=== PATIENT | female | born 1970 | race Caucasian/White ===

== ENCOUNTER 2019-01-19 13:38 | Emergency (ER) | payer BC ==
[2019-01-19 13:43] VITALS: BP 153/84
[2019-01-19] MEDS ORDERED: KETOROLAC TROMETHAMINE 60 MG/2 ML SDV IM ONE (14:26)
[2019-01-19] MEDS ORDERED: DEXAMETHASONE SOD PHOS INJ 10 MG/1 ML VIAL IM ONE (14:26)
--- NOTE | 2019-01-19 14:33 | ER Document Report ---
HPI - HPI Time Seen by Provider: 01/19/19 14:05 Pain Level: 4 Notes: Patient is a 48-year-old female with h/o previous back surgery and chronic back pain who presents c/o ongoing rt lower back pain with 'nerve pain' moving to the right thigh x2 weeks with muscle spasming. Patient states that bending twisting of the trunk make his pain worse. She is eating and drinking without any difficulties. She is urinating normally and having normal bowel movements. She has not had any injections or procedures to her lower back. Denies any IV drug abuse. No other concerns or complaints. Pt requesting muscle relaxer. Denies any headache, fever, neck pain, changes in vision/speech/mentation/hearing, URI, sore throat, chest pain, palpitations, syncope, cough, shortness of breath, wheeze, dyspnea, abdominal pain, nausea/vomiting/diarrhea, urinary retention, dysuria, hematuria, loss of control of bowel or bladder, numbness/tingling, saddle anesthesia, muscle paralysis/weakness, or rash. - ROS Systems Reviewed and Negative: Yes All other systems reviewed and negative - REPRODUCTIVE Reproductive: DENIES: : Past Medical History - Social History Smoking Status: Current Every Day Smoker Family History: Reviewed & Not Pertinent Vertical Provider Document - CONSTITUTIONAL Agree With Documented VS: Yes Notes: PHYSICAL EXAMINATION: GENERAL: Well-appearing, well-nourished and in no acute distress. LUNGS: Breath sounds clear to auscultation bilaterally and equal. No wheezes rales or rhonchi. HEART: Regular rate and rhythm without murmurs, rubs, gallops. ABDOMEN: Soft, nontender, nondistended abdomen. No guarding, no rebound. No masses appreciated. Normal bowel sounds present. No CVA tenderness bilaterally. No pulsatile mass Musculoskeletal: LE's b/l: FROM to passive/active. Strength 5+/5. No deficits noted. No bony tenderness of extremities. Back: FROM to passive/active. Strength 5+/5. No vertebral point tenderness, stepoffs, or deformities. No other bony tenderness, erythema, swelling, or ecchymosis. SLR negative b/l. + mild tenderness to the Rt L-paraspinal mm. Mild spasming. + right SI jt tenderness. No foot drop Extremities: No cyanosis, clubbing, or edema b/l. Peripheral pulses 2+. Capillary refill less than 2 seconds. NEUROLOGICAL: Normal speech, normal gait. Normal sensory, motor exams. Reflexes 2+ b/l. PSYCH: Normal mood, normal affect. SKIN: Warm, Dry, normal turgor, no rashes or lesions noted. - INFECTION CONTROL TRAVEL OUTSIDE OF THE [place] IN LAST 30 DAYS: No Course - Re-evaluation Re-evalutation: 01/19/19 14:31 Patient is an afebrile, well-hydrated, 48-year-old female who presents to the ED with acute on chronic low back pain. Vitals are acceptable. PE is otherwise unremarkable for any focal neurological deficits. Patient was given Decadron, Toradol. She has no significant tachycardia, tachypnea, or hypoxia. She is nontoxic-appearing and is tolerating p.o. without difficulties. There are no signs of infection. No other red flag symptoms noted. No other labs or imaging warranted at this time based on H&P. Low suspicion for any meningitis, fracture, expanding/ruptured AAA, cauda equina syndrome, epidural mass lesion/abscess, herniated disc causing severe spinal stenosis, or other systemic infection at this time. Patient is aware that this condition can change from initial presentation and that she needs monitor symptoms closely for any acute changes. I will send her home with a prescription for robaxin (she takes naproxen at home). Conservative measures otherwise for symptoms. Recheck with your PCM in 3-5 days. Consider consult with orthopedic/physical therapy. Return to the ED with any worsening/concerning symptoms otherwise as reviewed discharge. Patient is in agreement. - Vital Signs Vital signs: Temp Pulse Resp BP Pulse Ox 97.9 F 81 18 153/84 H 95 01/19/19 13:42 01/19/19 13:42 01/19/19 13:42 01/19/19 13:42 01/19/19 13:42 Discharge - Discharge Clinical Impression: Acute exacerbation of chronic low back pain Condition: Stable Disposition: HOME, SELF-CARE Instructions: Low Back Pain ([facility]) Additional Instructions: Rest, Ice Tylenol/ibuprofen as needed Light stretches daily Strength exercises as able Moist heat and massage may help F/u with your PCP in 3-5 days for a recheck Consider consult(s) with Orthopedics/physical therapy for ongoing/worsening symptoms Return to the ED with any worsening symptoms and/or development of fever, headache, chest pain, palpitations, syncope, shortness of breath, trouble breathing, abdominal pain, n/v/d, blood in stool/urine, loss of control of bowel/bladder, urinary retention, muscle weakness/paralysis, saddle anesthesia, numbness/tingling, or other worsening symptoms that are concerning to you. Prescriptions: Methocarbamol [Robaxin] 500 mg PO TID PRN #12 tablet PRN Reason: Forms: Elevated Blood Pressure, Smoking Cessation Education Referrals: [facility] [Provider Group] - Follow up as needed
== END 2019-01-19 14:53 | disposition home or self-care (01) ==
LOC: ER 13:38
DX: G89.29 Other chronic pain (principal); M54.5 Low back pain; R25.2 Cramp and spasm; F17.200 Nicotine dependence, unspecified, uncomplicated
CPT/HCPCS: 99283; 96374; 96375; J1885; J1100

== ENCOUNTER 2019-08-02 14:22 | Inpatient (IN) | payer BC, MEDICAID ==
--- NOTE | 2019-08-02 14:57 | ER Document Report ---
ED Medical Screen (RME) - General Chief Complaint: Leg Swelling Stated Complaint: LEG SWELLING, ABDOMINAL PAIN Time Seen by Provider: 08/02/19 14:46 Mode of Arrival: Wheelchair Information source: Patient Notes: 29-year-old female patient presents emergency department chief complaint of shortness of breath, dyspnea and bilateral lower extremity edema. Patient reports symptoms ongoing x1 month, getting worse over the last couple of weeks. She states she saw her primary care provider who placed her on Lasix 20 mg twice daily. She states at that time she had an elevated BNP of 12,000 however no further work-up was initiated. She states that she does have a history of CHF. Denies any chest pain currently. She does her also report that she has a hard lump in 1 of her breasts that she is concerned about. I have greeted and performed a rapid initial assessment of this patient. A comprehensive ED assessment and evaluation of the patient, analysis of test results and completion of the medical decision making process will be conducted by additional ED providers. I have specifically instructed the patient or family members with the patient to immediately return to any nursing staff should anything change in the patient's condition or with their chief complaint. TRAVEL OUTSIDE OF THE [place] IN LAST 30 DAYS: No - Related Data Allergies/Adverse Reactions: aspirin Allergy (Verified 08/02/19 14:45) gabapentin [From Neurontin] Allergy (Verified 08/02/19 14:45) Sulfa (Sulfonamide Antibiotics) Allergy (Verified 08/02/19 14:45) adhesive tape Adverse Reaction (Verified 08/02/19 14:45) Past Medical History - Social History Frequency of alcohol use: Rare - Past Medical History Cardiac Medical History: Reports: Hx Congestive Heart Failure Renal/ Medical History: Denies: Hx Peritoneal Dialysis Past Surgical History: Reports: Hx Section, Hx Cholecystectomy, Hx Hysterectomy, Hx Orthopedic Surgery - back/ankle/knee, Hx Tonsillectomy Physical Exam - Vital signs Vitals: Temp Pulse Resp BP Pulse Ox 97.5 F 82 18 106/75 91 L 08/02/19 14:31 08/02/19 14:31 08/02/19 14:31 08/02/19 14:31 08/02/19 14:31 Course - Vital Signs Vital signs: Temp Pulse Resp BP Pulse Ox 97.5 F 82 18 106/75 91 L 08/02/19 14:31 08/02/19 14:31 08/02/19 14:31 08/02/19 14:31 08/02/19 14:31
--- NOTE | 2019-08-02 15:23 | RADIOLOGY REPORT (SQ) ---
EXAM DESCRIPTION: CHEST 2 VIEWS COMPLETED DATE/TIME: 08/02/2019 3:14 pm REASON FOR STUDY: eval for fluid overload COMPARISON: None. EXAM PARAMETERS: NUMBER OF VIEWS: two views TECHNIQUE: Digital Frontal and Lateral radiographic views of the chest acquired. RADIATION DOSE: NA LIMITATIONS: none FINDINGS: LUNGS AND PLEURA: There is bilateral perihilar infiltrate and interstitial airspace diseas e. No pneumothorax or definite effusion. MEDIASTINUM AND HILAR STRUCTURES: No masses or contour abnormalities. HEART AND VASCULAR STRUCTURES: Heart is enlarged with central vascular prominence. BONES: No acute findings. HARDWARE: None in the chest. OTHER: No other significant finding. IMPRESSION: Cardiomegaly and vascular congestion. TECHNICAL DOCUMENTATION: JOB ID: [id number] [employer] All Rights Reserved Reading location - IP/workstation name: [email or web address]
[2019-08-02 16:25] LABS: ABSOLUTE BASOPHILS # (AUTO) 0.1 10^3/uL (0.0-0.2); ABSOLUTE EOSINOPHILS # (AUTO) 0.2 10^3/uL (0.0-0.6); ABSOLUTE LYMPHOCYTES (AUTO) 1.4 10^3/uL (0.5-4.7); ABSOLUTE MONOCYTES (AUTO) 0.7 10^3/uL (0.1-1.4); ABSOLUTE NEUT (AUTO) 6.4 10^3/uL (1.7-8.2); BASOPHILS % (AUTO) 0.9 % (0-2); EOSINOPHILS % (AUTO) 2.2 % (0-6); HEMATOCRIT 51.4 % (36.0-47.0); HEMOGLOBIN 16.5 g/dL (12.0-15.5); LYMPHOCYTES % (AUTO) 16.2 % (13-45); MEAN CORPUSCULAR HEMOGLOBIN 31.7 pg (27.0-33.4); MEAN CORPUSCULAR HGB CONC 32.1 g/dL (32.0-36.0); MEAN CORPUSCULAR VOLUME 99 fl (80-97); MONOCYTES % (AUTO) 7.8 % (3-13); PLATELET COUNT 210 10^3/uL (150-450); RED BLOOD COUNT 5.21 10^6/uL (3.72-5.28); RED CELL DISTRIBUTION WIDTH 18.5 % (11.5-14.0); SEGMENTED NEUTROPHILS % (AUTO) 72.9 % (42-78); TOTAL CELLS COUNTED % (AUTO) 100 %; WHITE BLOOD COUNT 8.8 10^3/uL (4.0-10.5)
[2019-08-02 16:41] LABS: ALBUMIN 3.3 g/dL (3.5-5.0); ALKALINE PHOSPHATASE 72 U/L (38-126); ANION GAP 6 (5-19); ASPARTATE AMINO TRANSFERASE 22 U/L (14-36); BILIRUBIN,DIRECT 0.3 mg/dL (0.0-0.4); BILIRUBIN,TOTAL 0.6 mg/dL (0.2-1.3); BLOOD UREA NITROGEN 17 mg/dL (7-20); CALCIUM 8.4 mg/dL (8.4-10.2); CARBON DIOXIDE 37 mmol/L (22-30); CHLORIDE 93 mmol/L (98-107); GLUCOSE 147 mg/dL (75-110); POTASSIUM 4.5 mmol/L (3.6-5.0); TOTAL PROTEIN 6.4 g/dL (6.3-8.2)
[2019-08-02 16:52] LABS: TROPONIN I 0.02 ng/mL
--- NOTE | 2019-08-02 17:19 | EKG REPORT ---
SEVERITY:- ABNORMAL ECG - SINUS RHYTHM DAYNA, CONSIDER BIATRIAL ABNORMALITIES CONSIDER RIGHT VENTRICULAR HYPERTROPHY : Confirmed by: Mely Cuba MD 02-Aug-2019 17:19:17
[2019-08-02] MEDS ORDERED: FUROSEMIDE INJ/PF 40 MG/4 ML SDV IV ONE (18:52)
--- NOTE | 2019-08-02 19:00 | ER Document Report ---
ED General - General Chief Complaint: Leg Swelling Stated Complaint: LEG SWELLING, ABDOMINAL PAIN Time Seen by Provider: 08/02/19 14:46 Mode of Arrival: Wheelchair Information source: Patient, Relative TRAVEL OUTSIDE OF THE [place] IN LAST 30 DAYS: No - HPI Onset: Other - over the last month Onset/Duration: Gradual Quality of pain: No pain Severity: None Associated symptoms: Shortness of breath, Other - cough, leg swelling, weight gain Exacerbated by: Other - exertion, laying down Relieved by: Other - sleeping upright, not exerting herself Similar symptoms previously: Yes - with CHF in the past Recently seen / treated by doctor: No Notes: 49 year old female with a history a history of CHF (maintained on Lasix 20mg BID) and HTN here for several weeks of worsening leg swelling and shortness of breath. The patient says she has started back on Lasix in late June. Apparently she was told several years ago she has CHF but her doctor told her she didnt have to be on a diuretic so she had been taken off. The patient denies chest pain of any kind. The patient is unable to sleep laying flat. The patient still smokes. - Related Data Allergies/Adverse Reactions: aspirin Allergy (Verified 08/02/19 14:45) gabapentin [From Neurontin] Allergy (Verified 08/02/19 14:45) Sulfa (Sulfonamide Antibiotics) Allergy (Verified 08/02/19 14:45) adhesive tape Adverse Reaction (Verified 08/02/19 14:45) Past Medical History - General Information source: Patient - Social History Smoking Status: Current Every Day Smoker Frequency of alcohol use: Rare Drug Abuse: None Lives with: Family Family History: Reviewed & Not Pertinent Patient has suicidal ideation: No Patient has homicidal ideation: No - Past Medical History Cardiac Medical History: Reports: Hx Congestive Heart Failure, Hx Hypertension Renal/ Medical History: Denies: Hx Peritoneal Dialysis Past Surgical History: Reports: Hx Section, Hx Cholecystectomy, Hx Hysterectomy, Hx Orthopedic Surgery - back/ankle/knee, Hx Tonsillectomy Review of Systems - Review of Systems Constitutional: No symptoms reported EENT: No symptoms reported Cardiovascular: Orthopnea, Dyspnea, Edema Respiratory: Short of breath Gastrointestinal: No symptoms reported Genitourinary: No symptoms reported Female Genitourinary: No symptoms reported Musculoskeletal: Leg swelling, Ankle swelling Skin: No symptoms reported Hematologic/Lymphatic: No symptoms reported Neurological/Psychological: No symptoms reported Physical Exam - Vital signs Vitals: Temp Pulse Resp BP Pulse Ox 97.5 F 82 18 106/75 91 L 08/02/19 14:31 08/02/19 14:31 08/02/19 14:31 08/02/19 14:31 08/02/19 14:31 - Notes Notes: GENERAL: Well-appearing, well-nourished and in no acute distress. HEAD: Atraumatic, normocephalic. EYES: Pupils equal round and reactive to light, extraocular movements intact, sclera anicteric, conjunctiva are normal. ENT: TMs normal, nares patent, oropharynx clear without exudates. Moist mucous membranes. NECK: Normal range of motion, supple without lymphadenopathy or JVD. LUNGS: Mild wheezing bilaterally, rales or rhonchi. HEART: Regular rate and rhythm without murmurs, rubs or gallops. ABDOMEN: Soft, nontender, normoactive bowel sounds. No guarding, no rebound. No masses appreciated. EXTREMITIES: Normal range of motion. Bilateral lower extremity pitting edema. No clubbing or cyanosis. NEUROLOGICAL: Cranial nerves II through XII grossly intact. Normal speech, normal gait. PSYCH: Normal mood, normal affect. SKIN: Warm, Dry, normal turgor, no rashes or lesions noted. Course - Re-evaluation Re-evalutation: 08/02/19 19:10 The patient is in heart failure and she has an new oxygen requirement. Patient has no PCP or [facility] Testing Manager at the moment. Will give 40mg IV Lasix and admit. Patient is not having chest pain and her Trop is negative. Chest Xray shows cardiomegaly and pulmonary edema 08/02/19 20:15 - Vital Signs Vital signs: Temp Pulse Resp BP Pulse Ox 97.5 F 82 22 H 114/85 93 08/02/19 14:31 08/02/19 14:31 08/02/19 18:57 08/02/19 18:57 08/02/19 18:57 - Laboratory Result Diagrams: 08/02/19 15:43 08/02/19 15:43 Laboratory results interpreted by me: 08/02/19 08/02/19 08/02/19 15:43 15:43 15:43 Hgb 16.5 H Hct 51.4 H MCV 99 H RDW 18.5 H Sodium 136.4 L Chloride 93 L Carbon Dioxide 37 H Glucose 147 H NT-Pro-B Natriuret Pep 86251 H Albumin 3.3 L - Diagnostic Test Radiology reviewed: Image reviewed, Reports reviewed - EKG Interpretation by Me EKG shows normal: Sinus rhythm, Intervals, QRS Complexes Rate: Normal [place]/QRS: Right axis deviation Additional EKG results interpreted by me: 08/02/19 20:16 T wave inversions in V1-V5 Discharge - Discharge Clinical Impression: Hypoxemia Heart failure Qualifiers: Heart failure type: unspecified Heart failure chronicity: acute on chronic Qualified Code(s): I50.9 - Heart failure, unspecified Condition: Stable Disposition: ADMITTED INPATIENT Admitting Provider: Kerry (Hospitalist) Unit Admitted: Telemetry
[2019-08-02] MEDS ORDERED: MAG HYDROX/AL HYDROX/SIMETH SUSP 30 ML UDCUP PO PRN (21:54)
[2019-08-02] MEDS ORDERED: MAGNESIUM HYDROXIDE SUSP 30 ML UDCUP PO PRN (21:54)
[2019-08-02] MEDS ORDERED: PROMETHAZINE HCL INJ 25 MG/1 ML VIAL IV PRN (21:54)
[2019-08-02] MEDS ORDERED: NICOTINE 21 MG/24 HR PATCH.TD24 TD PRN (22:02)
[2019-08-02] MEDS ORDERED: GUAIFENESIN SYRP 200 MG/10 ML UDC PO PRN (22:02)
[2019-08-02] MEDS ORDERED: MORPHINE SULFATE 10 MG/ML INJ IV PRN (22:02)
[2019-08-02] MEDS ORDERED: MELATONIN 5 MG TABLET PO PRN (22:02)
[2019-08-02 22:55] LABS: CREATINE KINASE MB 2.87 ng/mL (<4.55); TROPONIN I 0.023 ng/mL
[2019-08-02] MEDS: HEPARIN SOD (PORCINE) 5,000 UNIT/ML 1 ML VIAL SUBCUT SCH (23:23)
[2019-08-02] MEDS: FAMOTIDINE 20 MG TABLET PO SCH (23:24)
--- NOTE | 2019-08-03 00:46 | PDOC H&P ---
History of Present Illness Admission Date/PCP: 08/02/19 19:43 No local PCP Patient complains of: Dyspnea History of Present Illness: ANGÉLICA DOUGLASS is a 49 year old female who presents to the emergency room with a 1 month history of dyspnea. She admits to gradually worsening dyspnea accompanying dyspnea on exertion and associated bilateral leg swelling and orthopnea all becoming progressively worse over the last 1 month. She was seen at the [facility] in late June and was treated for heart failure by increasing her Lasix 20 mg to twice a day without any improvement. She denies other associated or accompanying signs and symptoms she admits a prior similar but far less severe episode when she was diagnosed with heart failure several years ago. She has not identified any additional aggravating or ameliorating factors for her dyspnea. In the emergency room she was found to have an elevated BNP with acute pulmonary edema demonstrated radiographically and was noted to require oxygen to maintain an adequate O2 saturation. She was subsequently admitted to the hospital for further evaluation and treatment. Past Medical History Cardiac Medical History: Reports: Congestive Heart Failure, Hypertension Denies: Atrial Fibrillation, Coronary Artery Disease, Myocardial Infarction, Hyperlipidema Pulmonary Medical History: Denies: Asthma, Chronic Obstructive Pulmonary Disease (COPD) EENT Medical History: Denies: Cataracts, Ears - Hearing aids Neurological Medical History: Denies: Hemorrhagic CVA, Ischemic CVA, Seizures Endocrine Medical History: Reports: Obesity Denies: Diabetes Mellitus Type 1, Diabetes Mellitus Type 2, Hyperthyroidism, Hypothyroidism Renal/ Medical History: Reports: Other - Endometriosis Denies: Chronic Kidney Disease, Nephrolithiasis Malignancy Medical History: Reports: None GI Medical History: Denies: Cirrhosis, Crohn's Disease, Gastroesophageal Reflux Disease, Hepatitis, Peptic Ulcer Disease, Ulcerative Colitis Musculoskeltal Medical History: Denies: Arthritis, Gout Skin Medical History: Denies: Eczema, Psoriasis Psychiatric Medical History: Reports: Tobacco Dependency Denies: Alcohol Dependency, Substance Abuse Traumatic Medical History: Reports: None Hematology: Denies: Anemia, Bleeding Tendencies Infectious Medical History: Reports: None Past Surgical History Past Surgical History: Reports: Section, Cholecystectomy, Hysterectomy, Knee Replacement, Orthopedic Surgery - back X2, right knee and right ankle, Tonsillectomy, Other - Numerous laparoscopies for endometriosis Social History Information Source: Patient Lives with: Family Smoking Status: Current Every Day Smoker Cigarettes Packs Per Day: 0.5 Electronic Cigarette use?: No Frequency of Alcohol Use: None Hx Recreational Drug Use: No Drugs: None Hx Prescription Drug Abuse: No - Advance Directive Resuscitation Status: Full Code Surrogate healthcare decision maker:: Gladys Frank Family History Family History: CAD, Hypertension, Malignancy. denies: DM Parental Family History Reviewed: Yes Children Family History Reviewed: No Sibling(s) Family History Reviewed.: Yes Medication/Allergy Allergies/Adverse Reactions: aspirin Allergy (Verified 08/02/19 14:45) gabapentin [From Neurontin] Allergy (Verified 08/02/19 14:45) Sulfa (Sulfonamide Antibiotics) Allergy (Verified 08/02/19 14:45) adhesive tape Adverse Reaction (Verified 08/02/19 14:45) Review of Systems Constitutional: ABSENT: chills, fever(s) Eyes: ABSENT: visual disturbances, other - Eye pain Ears: ABSENT: hearing changes, other - Ear pain Nose, Mouth, and Throat: ABSENT: headache(s), mouth pain, sore throat Breasts: PRESENT: other - Swelling in left breast associated with increased swelling of legs Cardiovascular: PRESENT: as per HPI, dyspnea on exertion, edema, orthropnea. ABSENT: chest pain, palpitations Respiratory: PRESENT: as per HPI, dyspnea. ABSENT: cough Gastrointestinal: ABSENT: abdominal pain, constipation, diarrhea, nausea, vomiting Genitourinary: ABSENT: dysuria, hematuria Musculoskeletal: ABSENT: back pain, joint swelling, muscle weakness Integumentary: ABSENT: pruritus, rash Neurological: ABSENT: confusion, convulsions, focal weakness, memory loss, sync ope Psychiatric: ABSENT: anxiety, depression Endocrine: ABSENT: cold intolerance, heat intolerance Hematologic/Lymphatic: ABSENT: easy bleeding, easy bruising Allergic/Immunologic: ABSENT: seasonal rhinorrhea Physical Exam Vital Signs: Temp Pulse Resp BP Pulse Ox 97.5 F 82 22 H 114/85 93 08/02/19 14:31 08/02/19 14:31 08/02/19 18:57 08/02/19 18:57 08/02/19 18:57 Intake & Output 07/31/19 08/01/19 08/02/19 23:59 23:59 23:59 Weight 99.8 kg General appearance: PRESENT: no acute distress, cooperative, morbidly obese Head exam: PRESENT: atraumatic, normocephalic Eye exam: PRESENT: conjunctiva pink. ABSENT: conjunctival injection, scleral icterus Ear exam: PRESENT: normal external ear exam. ABSENT: bleeding, drainage Mouth exam: PRESENT: dry mucosa, neck supple Neck exam: PRESENT: JVD - Bilateral. ABSENT: thyromegaly, tracheal deviation Respiratory exam: PRESENT: decreased breath sounds - Breath sounds decreased at both bases, rales - Fine bilateral rales in the lower one half of lung padilla, symmetrical Cardiovascular exam: PRESENT: gallop - S4 gallop rhythm. ABSENT: clicks, RRR, r ubs Pulses: PRESENT: normal carotid pulses, normal radial pulses Vascular exam: PRESENT: normal capillary refill. ABSENT: pallor Breast: PRESENT: Other - Edema of left breast GI/Abdominal exam: PRESENT: normal bowel sounds, soft Rectal exam: PRESENT: deferred Extremities exam: PRESENT: pedal edema - Bilateral, other - 3+ pitting edema of the bilateral lower extremities to the mid thigh on the right and to the hip on the left Musculoskeletal exam: ABSENT: deformity, dislocation Neurological exam: PRESENT: alert, oriented to person, oriented to place, oriented to time, oriented to situation, CN II-XII grossly intact. ABSENT: motor sensory deficit Psychiatric exam: PRESENT: appropriate affect, normal mood Skin exam: PRESENT: dry, intact, warm. ABSENT: jaundice, rash, urticaria Results Laboratory Results: 08/02/19 15:43 08/02/19 15:43 08/02/19 08/02/19 15:43 15:43 WBC 8.8 RBC 5.21 Hgb 16.5 H Hct 51.4 H MCV 99 H MCH 31.7 MCHC 32.1 RDW 18.5 H Plt Count 210 Seg Neutrophils % 72.9 Sodium 136.4 L Potassium 4.5 Chloride 93 L Carbon Dioxide 37 H Anion Gap 6 BUN 17 Creatinine 0.73 Est GFR ( Amer) > 60 Glucose 147 H Calcium 8.4 Total Bilirubin 0.6 AST 22 Alkaline Phosphatase 72 Total Protein 6.4 Albumin 3.3 L 08/02/19 15:43 Troponin I 0.020 NT-Pro-B Natriuret Pep 25626 H Impressions: Chest X-Ray 08/02/19 14:55 IMPRESSION: Cardiomegaly and vascular congestion. Assessment and Plan - Diagnosis (1) Acute pulmonary edema with congestive heart failure Is this a current diagnosis for this admission?: Yes (2) Acute respiratory failure with hypoxia Is this a current diagnosis for this admission?: Yes (3) Acute on chronic congestive heart failure Qualifiers: Heart failure type: unspecified Qualified Code(s): I50.9 - Heart failure, unspecified Is this a current diagnosis for this admission?: Yes (4) Essential hypertension Is this a current diagnosis for this admission?: Yes (5) Morbid obesity with BMI of 40.0-44.9, adult Is this a current diagnosis for this admission?: Yes (6) Tobacco use disorder, continuous Is this a current diagnosis for this admission?: Yes - Plan Summary Summary: Patient is admitted to the medical floor on telemetry bed for routine supportive and symptomatic cares. She will be placed on the congestive heart failure protocol. A cardiology consultation with Dr. Queen will be obtained and an echocardiogram will be ordered. Patient will receive supplemental oxygen utilizing nasal cannula as required to maintain an adequate O2 saturation. Use of noninvasive airway pressure support devices will be entertained if required. Patient will receive morphine 2 mg IV every hour as needed severe dyspnea for treatment of her pulmonary edema. Routine laboratory evaluations will be obtained per the congestive heart failure protocol. Smoking cessation is advised and counseled briefly at the bedside. A nicotine replacement patch is available for the patient's use, if desired. - Time Time Spent with patient: 15-24 minutes Smoking Cessation Education: 3 to 10 minutes Medications reviewed and adjusted accordingly: Yes Anticipated discharge: Home with Homehealth - Inpatient Certification Based on my medical assessment, after consideration of the patient's comorbidities, presenting symptoms, or acuity I expect that the services needed warrant INPATIENT care.: Yes I certify that my determination is in accordance with my understanding of Medicare's requirements for reasonable and necessary INPATIENT services [42 CFR 412.3e].: Yes Medical Necessity: Failure to Improve With Outpatient Therapy, Significant Comorbidiites Make Outpatient Treatment Too Risky, Need Close Monitoring Due to Risk of Patient Decompensation, Need For Continuous Telemetry Monitoring, Risk of Complication if Not Cared For in Hospital
[2019-08-03] MEDS: FUROSEMIDE INJ/PF 40 MG/4 ML SDV IV SCH ×4 (00:56→21:15)
[2019-08-03] MEDS ORDERED: INFLUENZA QUAD (6MOS+) 2019-20 VAC 0.5 ML SYR IM ONE (01:45)
[2019-08-03 05:12] LABS: ABSOLUTE BASOPHILS # (AUTO) 0.1 10^3/uL (0.0-0.2); ABSOLUTE EOSINOPHILS # (AUTO) 0.2 10^3/uL (0.0-0.6); ABSOLUTE LYMPHOCYTES (AUTO) 1.8 10^3/uL (0.5-4.7); ABSOLUTE MONOCYTES (AUTO) 0.8 10^3/uL (0.1-1.4); BASOPHILS % (AUTO) 0.7 % (0-2); EOSINOPHILS % (AUTO) 2.6 % (0-6); HEMATOCRIT 54.2 % (36.0-47.0); HEMOGLOBIN 17.2 g/dL (12.0-15.5); LYMPHOCYTES % (AUTO) 20.1 % (13-45); MEAN CORPUSCULAR HEMOGLOBIN 31.5 pg (27.0-33.4); MEAN CORPUSCULAR HGB CONC 31.8 g/dL (32.0-36.0); MEAN CORPUSCULAR VOLUME 99 fl (80-97); MONOCYTES % (AUTO) 8.6 % (3-13); PLATELET COUNT 200 10^3/uL (150-450); RED BLOOD COUNT 5.47 10^6/uL (3.72-5.28); RED CELL DISTRIBUTION WIDTH 18.5 % (11.5-14.0); TOTAL CELLS COUNTED % (AUTO) 100 %; WHITE BLOOD COUNT 8.8 10^3/uL (4.0-10.5)
[2019-08-03 05:30] LABS: BLOOD UREA NITROGEN 18 mg/dL (7-20); CALCIUM 8.8 mg/dL (8.4-10.2); CHLORIDE 89 mmol/L (98-107); CHOLESTEROL 133.17 mg/dL (0-200); CREATINE KINASE 27 U/L (30-135); GLUCOSE 89 mg/dL (75-110); POTASSIUM 5.3 mmol/L (3.6-5.0); TRIGLYCERIDES 119 mg/dL (<150)
[2019-08-03 05:41] LABS: DIRECT LDL 107 mg/dL (<100)
[2019-08-03 05:42] LABS: CREATINE KINASE MB 2.6 ng/mL (<4.55); TROPONIN I 0.027 ng/mL
[2019-08-03 05:52] LABS: ANION GAP 6 (5-19)
[2019-08-03 05:56] LABS: CARBON DIOXIDE 47 mmol/L (22-30)
[2019-08-03] MEDS: HEPARIN SOD (PORCINE) 5,000 UNIT/ML 1 ML VIAL SUBCUT SCH ×3 (05:59→21:15)
[2019-08-03 06:01] LABS: THYROID STIMULATING HORMONE 2.71 uIU/mL (0.47-4.68)
[2019-08-03 06:24] LABS: FREE T3 2.8 pg/mL (2.77-5.27)
[2019-08-03] MEDS: POTASSIUM CHLORIDE 10 MEQ TABLET.ER PO SCH ×3 (11:22→16:46)
[2019-08-03] MEDS: LISINOPRIL 5 MG TABLET PO SCH (11:24)
[2019-08-03] MEDS: DOCUSATE SODIUM 100 MG CAPSULE PO SCH (11:25)
[2019-08-03] MEDS: FAMOTIDINE 20 MG TABLET PO SCH ×2 (11:25→21:16)
[2019-08-03] MEDS: METOPROLOL SUCCINATE 25 MG TAB.SR.24H PO SCH (11:25)
[2019-08-03] MEDS: CLOPIDOGREL BISULFATE 75 MG TABLET PO SCH (11:25)
[2019-08-03 12:04] LABS: CREATINE KINASE MB 2.04 ng/mL (<4.55); TROPONIN I 0.019 ng/mL
[2019-08-03 14:46] LABS: BLOOD UREA NITROGEN 16 mg/dL (7-20); CALCIUM 8.2 mg/dL (8.4-10.2); CHLORIDE 89 mmol/L (98-107); GLUCOSE 93 mg/dL (75-110); POTASSIUM 4.8 mmol/L (3.6-5.0)
[2019-08-03 14:58] LABS: ANION GAP 5 (5-19)
[2019-08-03 15:00] LABS: CARBON DIOXIDE 43 mmol/L (22-30)
[2019-08-03] MEDS ORDERED: CYCLOBENZAPRINE HCL 10 MG TABLET PO ONE (15:00)
[2019-08-03 16:35] LABS: ARTERIAL BLOOD BASE EXCESS 15.7 mmol/L; ARTERIAL BLOOD H2CO3 3.01 mmol/L (1.05-1.35); ARTERIAL BLOOD HCO3 48.2 mmol/L (20-24); ARTERIAL BLOOD O2 SATURATION 90.8 % (94-98); ARTERIAL BLOOD PO2 69.4 mmHg (80-100); ARTERIAL BLOOD TOTAL CO2 51.3 mmol/L (21-25)
--- NOTE | 2019-08-03 17:18 | PDOC PROGRESS REPORT ---
Subjective Progress Note for:: 08/03/19 Subjective:: The patient is a 49-year-old female with a past medical history of CHF, HTN, obesity, and tobacco dependence who was admitted 08/02/2019 for acute respiratory failure secondary to pulmonary edema and CHF exacerbation. The patient was seen on morning rounds. She was found resting in bed, comfortably, on BiPAP. She was sleeping soundly; woke briefly and made eye con tact. She nodded her head yes when I confirmed her name. She tells me that she is feeling well, but then quickly closed her eyes and went back to sleep. Per nursing, the patient was awake shortly later and fully conversational; A&O x4 per their assessment. ROS is otherwise limited. Nursing called to report panic bicarb (by chemistry) and PCO2 (by ABG) this afternoon. At the time of panic results, patient was awake, A&O x4, and eating her dinner without difficulty. No outward signs of hypercapnia. Patient was placed back on BiPAP; will plan for repeat ABG in 1 hour. Reason For Visit: ACUTE PULMONARY EDEMA,ACUTE ON CHRONIC SYSTOLIC Physical Exam Vital Signs: Temp Pulse Resp BP Pulse Ox 98.4 F 94 20 108/71 90 L 08/03/19 11:22 08/03/19 11:22 08/03/19 11:22 08/03/19 11:22 08/03/19 11:22 Intake & Output 08/02/19 08/03/19 08/04/19 06:59 06:59 06:59 Intake Total 260 1050 Output Total 1600 Balance -1340 1050 Weight 99.3 kg General appearance: PRESENT: no acute distress, obese, well-developed, well- nourished Head exam: PRESENT: atraumatic, normocephalic Eye exam: PRESENT: conjunctiva pink, EOMI, PERRLA. ABSENT: scleral icterus Ear exam: PRESENT: normal external ear exam Mouth exam: PRESENT: moist, tongue midline Neck exam: ABSENT: carotid bruit, JVD, lymphadenopathy, thyromegaly Respiratory exam: PRESENT: clear to auscultation carli, decreased breath sounds - bibasilar, symmetrical, unlabored, other - BiPAP. ABSENT: rales, rhonchi, wheezes Cardiovascular exam: PRESENT: RRR, +S1, +S2. ABSENT: diastolic murmur, rubs, systolic murmur Pulses: PRESENT: normal dorsalis pedis pul Vascular exam: PRESENT: normal capillary refill GI/Abdominal exam: PRESENT: normal bowel sounds, soft. ABSENT: distended, guarding, mass, organolmegaly, rebound, tenderness Rectal exam: PRESENT: deferred Gentrourinary exam: PRESENT: indwelling catheter Extremities exam: PRESENT: full ROM. ABSENT: calf tenderness, clubbing, pedal edema Neurological exam: PRESENT: CN II-XII grossly intact, other - Sleeping soundly. ABSENT: motor sensory deficit Psychiatric exam: PRESENT: appropriate affect, normal mood. ABSENT: homicidal ideation, suicidal ideation Skin exam: PRESENT: dry, intact, warm. ABSENT: cyanosis, rash Results Laboratory Results: 08/03/19 03:56 08/03/19 13:54 08/02/19 08/02/19 08/03/19 15:43 15:43 03:56 WBC 8.8 RBC 5.21 Hgb 16.5 H Hct 51.4 H MCV 99 H MCH 31.7 MCHC 32.1 RDW 18.5 H Plt Count 210 Seg Neutrophils % 72.9 Sodium 136.4 L 141.6 Potassium 4.5 5.3 H Chloride 93 L 89 L Carbon Dioxide 37 H 47 H* D Anion Gap 6 6 BUN 17 18 Creatinine 0.73 0.85 Est GFR ( Amer) > 60 > 60 Glucose 147 H 89 Calcium 8.4 8.8 Magnesium 2.2 Total Bilirubin 0.6 AST 22 Alkaline Phosphatase 72 Total Protein 6.4 Albumin 3.3 L Triglycerides 119 Cholesterol 133.17 LDL Cholesterol Direct 107 H VLDL Cholesterol 24.0 HDL Cholesterol 24 L TSH Free T3 pg/mL 08/03/19 08/03/19 08/03/19 03:56 03:56 13:54 WBC 8.8 RBC 5.47 H Hgb 17.2 H Hct 54.2 H MCV 99 H MCH 31.5 MCHC 31.8 L RDW 18.5 H Plt Count 200 Seg Neutrophils % 68.0 Sodium 136.6 L Potassium 4.8 Chloride 89 L Carbon Dioxide 43 H* Anion Gap 5 BUN 16 Creatinine 0.84 Est GFR ( Amer) > 60 Glucose 93 Calcium 8.2 L Magnesium Total Bilirubin AST Alkaline Phosphatase Total Protein Albumin Triglycerides Cholesterol LDL Cholesterol Direct VLDL Cholesterol HDL Cholesterol TSH 2.71 Free T3 pg/mL 2.80 08/02/19 08/02/19 08/02/19 15:43 22:10 22:10 Creatine Kinase 28 L CK-MB (CK-2) 2.87 Troponin I 0.020 0.023 NT-Pro-B Natriuret Pep 31936 H 08/03/19 08/03/19 08/03/19 03:56 03:56 10:40 Creatine Kinase 27 L 26 L CK-MB (CK-2) 2.60 Troponin I 0.027 NT-Pro-B Natriuret Pep 08/03/19 10:40 Creatine Kinase CK-MB (CK-2) 2.04 Troponin I 0.019 NT-Pro-B Natriuret Pep Impressions: Chest X-Ray 08/02/19 14:55 IMPRESSION: Cardiomegaly and vascular congestion. Assessment and Plan - Diagnosis (1) Acute on chronic congestive heart failure Qualifiers: Heart failure type: unspecified Qualified Code(s): I50.9 - Heart failure, unspecified Is this a current diagnosis for this admission?: Yes Plan: Echocardiogram is pending. Patient is admitted to the medical floor on continuous cardiac telemetry. Continue supplemental oxygen and BiPAP as needed to maintain saturations >90% Continues on Lisinopril 2.5 mg daily and Metoprolol XL 25 mg daily. Currently receiving IV furosemide. Cardiology is consulted; medications per their expertise. Cardiac diet. (2) Acute pulmonary edema with congestive heart failure Is this a current diagnosis for this admission?: Yes Plan: Secondary to #1 resulting in fluid volume overload. Evaluation and management as above. (3) Acute respiratory failure with hypoxia and hypercapnia Is this a current diagnosis for this admission?: Yes Plan: Secondary to #1 and #2. Additionally, I suspect that the patient has underlying COPD with a chronically elevated CO2. ABG on 2 L via nasal cannula revealed pH 7.30, PCO2 100, PO2 69, HCO3 48.2. At time of ABG, patient was alert and oriented, conversational, socially appropriate, and eating her dinner. Hgb 17. All indicate chronic CO2 retention. Patient is placed back on BiPAP; will repeat ABG in 1 hour to confirm improvement. Additionally have started scheduled and as needed nebulizer treatments. IV Solu-Medrol; perhaps patient's lung sounds are diminished due to COPD exacerbation with tight airways. Consider additional chest imaging if not significantly improved tomorrow. Consider pulmonology consultation. Patient will benefit from overnight sleep study as an outpatient. Careful attention to the patient's mentation/alertness. (4) HTN (hypertension) Is this a current diagnosis for this admission?: Yes Plan: Blood pressures are currently acceptable. Continues on Lisinopril, 2.5 mg daily and Metoprolol XL 25 mg daily. Currently receiving IV furosemide. Cardiology is consulted; medications per their expertise. Cardiac diet. (5) Morbid obesity with BMI of 40.0-44.9, adult Is this a current diagnosis for this admission?: Yes Plan: Dietary discretion and lifestyle modification are encouraged. Patient is placed on a cardiac diet sap basis and patient educator are consulted. (6) Tobacco use disorder, continuous Is this a current diagnosis for this admission?: Yes Plan: Smoking cessation to be encouraged. Nicotine replacement therapies are provided. - Time Time Spent with patient: 35 or more minutes Medications reviewed and adjusted accordingly: Yes Anticipated discharge: Home
[2019-08-03 18:44] LABS: ARTERIAL BLOOD BASE EXCESS 18.3 mmol/L; ARTERIAL BLOOD H2CO3 2.98 mmol/L (1.05-1.35); ARTERIAL BLOOD HCO3 50.8 mmol/L (20-24); ARTERIAL BLOOD O2 SATURATION 74.4 % (94-98); ARTERIAL BLOOD PH 7.33 (7.35-7.45); ARTERIAL BLOOD PO2 45.2 mmHg (80-100); ARTERIAL BLOOD TOTAL CO2 53.8 mmol/L (21-25)
[2019-08-03 18:46] LABS: ARTERIAL BLOOD FIO2 25%
--- NOTE | 2019-08-03 20:02 | RADIOLOGY REPORT (SQ) ---
EXAM DESCRIPTION: CHEST SINGLE VIEW COMPLETED DATE/TIME: 08/03/2019 7:51 pm REASON FOR STUDY: dyspnea COMPARISON: 08/02/2019 NUMBER OF VIEWS: One view. TECHNIQUE: Single frontal radiographic view of the chest acquired. LIMITATIONS: None. FINDINGS: LUNGS AND PLEURA: No opacities, masses or pneumothorax. No pleural effusion. MEDIASTINUM AND HILAR STRUCTURES: No masses or contour abnormality. HEART AND VASCULATURE: Cardiac enlargement. Vascular congestion. BONES: No acute findings. HARDWARE: None in the chest. OTHER: No other significant finding. IMPRESSION: CARDIAC ENLARGEMENT. VASCULAR CONGESTION. No improvement. TECHNICAL DOCUMENTATION: JOB ID: [id number] [employer]- All Rights Reserved Reading location - IP/workstation name: [email or web address]
[2019-08-03] MEDS: IPRATROPIUM/ALBUTEROL 0.5-2.5 MG/3 ML AMPUL NEB SCH (20:31)
[2019-08-03] MEDS: METHYLPREDNISOLONE INJ 40 MG/1 ML SDV IV SCH (21:15)
[2019-08-03] MEDS: ACETAMINOPHEN 325 MG TABLET PO PRN (21:16)
--- NOTE | 2019-08-03 21:45 | PDOC CONSULTATION ---
Consultation Consult Date: 08/03/19 Provider Consulted: TIFFANY MITTAL Consult reason:: Congestive heart failure History of Present Illness Admission Date/PCP: 08/02/19 19:43 Patient complains of: Dyspnea History of Present Illness: ANGÉLICA DOUGLASS is a 49 year old female who presented with acute onset respiratory distress. She is known to have nicotine dependence-cigarettes, obesity and hypertension. Her presentation was consistent with worsening respiratory distress probably due to fluid overload. She did have bronchospasm with active wheezing at the time of presentation as well. At the time of my exam patient is drowsy and quite sleepy. She is wearing noninvasive positive pressure ventilation. She is answering questions appropriately. Denies any chest pain. Admits to dyspnea and poor effort tolerance. Does not mention any prior cardiac complaints Continues to smoke cigarettes probably a half a pack per day. No familial illnesses are reported. Past Medical History Cardiac Medical History: Reports: Congestive Heart Failure, Hypertension Denies: Atrial Fibrillation, Coronary Artery Disease, Myocardial Infarction, Hyperlipidema Pulmonary Medical History: Denies: Asthma, Chronic Obstructive Pulmonary Disease (COPD) EENT Medical History: Denies: Cataracts, Ears - Hearing aids Neurological Medical History: Denies: Hemorrhagic CVA, Ischemic CVA, Seizures Endocrine Medical History: Reports: Obesity Denies: Diabetes Mellitus Type 1, Diabetes Mellitus Type 2, Hyperthyroidism, Hypothyroidism Renal/ Medical History: Reports: Other - Endometriosis Denies: Chronic Kidney Disease, Nephrolithiasis Malignancy Medical History: Reports: None GI Medical History: Denies: Cirrhosis, Crohn's Disease, Gastroesophageal Reflux Disease, Hepatitis, Peptic Ulcer Disease, Ulcerative Colitis Musculoskeltal Medical History: Denies: Arthritis, Gout Skin Medical History: Denies: Eczema, Psoriasis Psychiatric Medical History: Reports: Tobacco Dependency Denies: Alcohol Dependency, Substance Abuse Traumatic Medical History: Reports: None Hematology: Denies: Anemia, Bleeding Tendencies Infectious Medical History: Reports: None Past Surgical History Past Surgical History: Reports: Section, Cholecystectomy, Hysterectomy, Knee Replacement, Orthopedic Surgery - back X2, right knee and right ankle, Tonsillectomy, Other - Numerous laparoscopies for endometriosis Social History Lives with: Family Smoking Status: Current Every Day Smoker Cigarettes Packs Per Day: 0.5 Electronic Cigarette use?: No Frequency of Alcohol Use: None Hx Recreational Drug Use: No Drugs: None Hx Prescription Drug Abuse: No - Advance Directive Resuscitation Status: Full Code Family History Family History: CAD, Hypertension, Malignancy. denies: DM Parental Family History Reviewed: No - No familial illnesses reported Children Family History Reviewed: NA Sibling(s) Family History Reviewed.: NA Medication/Allergy Home Medications: Furosemide [Lasix 20 mg Tablet] 20 mg PO BID 08/03/19 Metoprolol Succinate [Toprol Xl 25 mg Tab.sr] 25 mg PO DAILY 08/03/19 Allergies/Adverse Reactions: aspirin Allergy (Verified 08/02/19 14:45) gabapentin [From Neurontin] Allergy (Verified 08/02/19 14:45) Sulfa (Sulfonamide Antibiotics) Allergy (Verified 08/02/19 14:45) adhesive tape Adverse Reaction (Verified 08/02/19 14:45) Review of Systems Constitutional: PRESENT: as per HPI Cardiovascular: PRESENT: dyspnea on exertion Respiratory: PRESENT: cough, dyspnea Neurological: PRESENT: as per HPI Physical Exam Vital Signs: Temp Pulse Resp BP Pulse Ox 97.9 F 83 20 122/72 89 L 08/03/19 20:33 08/03/19 20:35 08/03/19 20:33 08/03/19 20:35 08/03/19 20:35 Intake & Output 08/02/19 08/03/19 08/04/19 06:59 06:59 06:59 Intake Total 260 1170 Output Total 1600 Balance -1340 1170 Weight 99.3 kg General appearance: PRESENT: morbidly obese Head exam: PRESENT: atraumatic, normocephalic Eye exam: PRESENT: EOMI Mouth exam: PRESENT: moist Neck exam: PRESENT: JVD Respiratory exam: PRESENT: accessory muscle use, crackles, symmetrical, ta chypnea Cardiovascular exam: PRESENT: RRR, +S1, +S2 Pulses: PRESENT: normal radial pulses Rectal exam: PRESENT: deferred Neurological exam: PRESENT: alert, awake, oriented to person, oriented to place, oriented to time Psychiatric exam: PRESENT: appropriate affect Skin exam: PRESENT: dry, intact Results Laboratory Results: 08/03/19 03:56 08/03/19 13:54 08/03/19 08/03/19 08/03/19 03:56 03:56 03:56 WBC 8.8 RBC 5.47 H Hgb 17.2 H Hct 54.2 H MCV 99 H MCH 31.5 MCHC 31.8 L RDW 18.5 H Plt Count 200 Seg Neutrophils % 68.0 Carbonic Acid HCO3/H2CO3 Ratio ABG pH ABG pCO2 ABG pO2 ABG HCO3 ABG O2 Saturation ABG Base Excess FiO2 Sodium 141.6 Potassium 5.3 H Chloride 89 L Carbon Dioxide 47 H* D Anion Gap 6 BUN 18 Creatinine 0.85 Est GFR ( Amer) > 60 Glucose 89 Calcium 8.8 Magnesium 2.2 Triglycerides 119 Cholesterol 133.17 LDL Cholesterol Direct 107 H VLDL Cholesterol 24.0 HDL Cholesterol 24 L TSH 2.71 Free T3 pg/mL 2.80 08/03/19 08/03/19 08/03/19 13:54 16:17 18:20 WBC RBC Hgb Hct MCV MCH MCHC RDW Plt Count Seg Neutrophils % Carbonic Acid 3.01 H 2.98 H HCO3/H2CO3 Ratio 16:1 17:1 ABG pH 7.30 L 7.33 L ABG pCO2 100.0 H* 99.0 H* ABG pO2 69.4 L 45.2 L ABG HCO3 48.2 H 50.8 H ABG O2 Saturation 90.8 L 74.4 L ABG Base Excess 15.7 18.3 FiO2 2l 25% Sodium 136.6 L Potassium 4.8 Chloride 89 L Carbon Dioxide 43 H* Anion Gap 5 BUN 16 Creatinine 0.84 Est GFR ( Amer) > 60 Glucose 93 Calcium 8.2 L Magnesium Triglycerides Cholesterol LDL Cholesterol Direct VLDL Cholesterol HDL Cholesterol TSH Free T3 pg/mL 08/02/19 08/02/19 08/02/19 15:43 22:10 22:10 Creatine Kinase 28 L CK-MB (CK-2) 2.87 Troponin I 0.020 0.023 NT-Pro-B Natriuret Pep [id number] H 08/03/19 08/03/19 08/03/19 03:56 03:56 10:40 Creatine Kinase 27 L 26 L CK-MB (CK-2) 2.60 Troponin I 0.027 NT-Pro-B Natriuret Pep 08/03/19 10:40 Creatine Kinase CK-MB (CK-2) 2.04 Troponin I 0.019 NT-Pro-B Natriuret Pep EKG Comments: EKG reviewed independently by me. Sinus rhythm, left atrial abnormality, right ventricular hypertrophy Impressions: Chest X-Ray 08/03/19 00:00 IMPRESSION: CARDIAC ENLARGEMENT. VASCULAR CONGESTION. No improvement. Status: Image reviewed by me - Cardiomegaly and pulmonary vascular congestion Assessment & Plan - Diagnosis (1) Acute pulmonary edema with congestive heart failure Is this a current diagnosis for this admission?: Yes Plan: Acute decompensated congestive heart failure No prior history of similar illness. Chest x-ray with cardiomegaly and pulmonary vascular congestion EKG with right ventricular hypertrophy We will obtain transthoracic echocardiogram Agree with intravenous diuresis Agree with beta-paty as well as DEMETRIS inhibitor Continue to monitor fluid status carefully (2) Essential hypertension Is this a current diagnosis for this admission?: Yes Plan: We will watch blood pressures as we continue to diurese Continue lisinopril Continue metoprolol (3) Tobacco use disorder, continuous Is this a current diagnosis for this admission?: Yes Plan: Patient needs tobacco cessation counseling. He is also wheezing may be a component of bronchospasm exists which is complicating the picture
[2019-08-04] MEDS: IPRATROPIUM/ALBUTEROL 0.5-2.5 MG/3 ML AMPUL NEB SCH ×4 (02:46→20:23)
[2019-08-04 05:04] LABS: HEMOGLOBIN 15.6 g/dL (12.0-15.5); MEAN CORPUSCULAR HEMOGLOBIN 31.1 pg (27.0-33.4); MEAN CORPUSCULAR HGB CONC 31.9 g/dL (32.0-36.0); MEAN CORPUSCULAR VOLUME 98 fl (80-97); PLATELET COUNT 172 10^3/uL (150-450); RED BLOOD COUNT 5.03 10^6/uL (3.72-5.28); RED CELL DISTRIBUTION WIDTH 18.1 % (11.5-14.0); WHITE BLOOD COUNT 8.7 10^3/uL (4.0-10.5)
[2019-08-04 05:22] LABS: BLOOD UREA NITROGEN 21 mg/dL (7-20); CALCIUM 8.5 mg/dL (8.4-10.2); CHLORIDE 87 mmol/L (98-107); GLUCOSE 201 mg/dL (75-110); POTASSIUM 4.7 mmol/L (3.6-5.0)
[2019-08-04] MEDS: FUROSEMIDE INJ/PF 40 MG/4 ML SDV IV SCH ×3 (05:24→21:53)
[2019-08-04] MEDS: METHYLPREDNISOLONE INJ 40 MG/1 ML SDV IV SCH ×3 (05:24→21:53)
[2019-08-04] MEDS: HEPARIN SOD (PORCINE) 5,000 UNIT/ML 1 ML VIAL SUBCUT SCH ×3 (05:25→21:53)
[2019-08-04 05:29] LABS: ANION GAP 8 (5-19)
[2019-08-04 05:30] LABS: CARBON DIOXIDE 42 mmol/L (22-30)
[2019-08-04 06:49] LABS: ARTERIAL BLOOD BASE EXCESS 16.4 mmol/L; ARTERIAL BLOOD FIO2 50%; ARTERIAL BLOOD H2CO3 2.98 mmol/L (1.05-1.35); ARTERIAL BLOOD HCO3 48.8 mmol/L (20-24); ARTERIAL BLOOD O2 SATURATION 88.1 % (94-98); ARTERIAL BLOOD PH 7.31 (7.35-7.45); ARTERIAL BLOOD PO2 62.6 mmHg (80-100); ARTERIAL BLOOD TOTAL CO2 51.9 mmol/L (21-25)
--- NOTE | 2019-08-04 09:11 | XCELERA REPORT ---
[address] [address] Transthoracic Echocardiogram Report Name: ANGÉLICA DOUGLASS Age: 49 yrs Gender: Female : 1970 Patient Status: Inpatient Patient Location: [address] [place], [place] [address] Study Date: 08/03/2019 03:31 PM History: CHF Height: 60 in Weight: 218 lb BSA: 1.9 m2 Procedure: A complete two-dimensional transthoracic echocardiogram was performed (2D, M-mode, spectral and color flow Doppler). The study was technically difficult with many images being suboptimal in quality. Reason For Study: CHF, Pulm edema Previous Evaluation: No previous studies were available. History: CHF. Shortness of breath. Ordering Physician: ZAFAR FAROOQ Performed By: Nuvia Araujo Interpretation Summary The study was technically difficult with many images being suboptimal in quality. Left ventricular systolic function is low normal. The Ejection Fraction estimate is 50-55% The right ventricle is moderate to severely dilated. The right ventricular systolic function is moderately reduced. There is a mild amount of mitral regurgitation There is a mild amount of tricuspid regurgitation There is moderate pulmonary hypertension by echo Minimal pericardial effusion. MMode/2D Measurements & Calculations RVDd: 2.6 cm LVIDd: 4.6 cm FS: 27.9 % LA dimension: 4.3 cm IVSd: 1.1 cm LVIDs: 3.3 cm EDV(Teich): 98.0 ml LVPWd: 1.1 cm ESV(Teich): 44.9 ml EF(Teich): 54.1 % Doppler Measurements & Calculations MV E max lissa: MV P1/2t max lissa: Ao V2 max: LV V1 max P.8 cm/sec 100.8 cm/sec 119.4 cm/sec 5.7 mmHg MV A max lissa: MV P1/2t: 49.4 msec Ao max P.7 mmHgLV V1 max: 75.5 cm/sec MVA(P1/2t): 4.5 cm2 119.5 cm/sec MV E/A: 1.2 MV dec slope: 597.6 cm/sec2 MV dec time: 0.27 sec PA V2 max: TR max lissa: MV P1/2t-pr_phl: 74.5 cm/sec 322.1 cm/sec 49.4 msec PA max PG: TR max P.5 mmHg 2.2 mmHg Left Ventricle The left ventricle is grossly normal size. Left ventricular systolic function is low normal. The Ejection Fraction estimate is 50-55%. Doppler measurements suggest pseudonormalized left ventricular relaxation, which is associated with grade II/IV or mild to moderate diastolic dysfunction. Regional wall motion abnormalities cannot be excluded due to limited visualization. Right Ventricle The right ventricle is moderate to severely dilated. The right ventricular systolic function is moderately reduced. Atria The right atrium is mild to moderately dilated. The left atrium is mildly dilated. Mitral Valve The mitral valve is grossly normal. There is a mild amount of mitral regurgitation. Aortic Valve The aortic valve is not well visualized secondary to technical limitations. The aortic valve opens well. There is no aortic valve stenosis. No aortic regurgitation is present. Tricuspid Valve The tricuspid valve is normal in structure and function. There is no tricuspid stenosis. There is a mild amount of tricuspid regurgitation. Right ventricular systolic pressure is estimated to be elevated at 50-60mmHg. There is moderate pulmonary hypertension by echo. Pulmonic Valve The pulmonic valve is not well seen, but is grossly normal. There is a trace amount of pulmonic regurgitation. Great Vessels The aortic root is not well visualized but is probably normal size. The inferior vena cava appeared dilated and decreased < 50% with respiration (RAP 15-20 mmHg). Effusions Minimal pericardial effusion. : ZAFAR FAROOQ Anil
[2019-08-04] MEDS: DOCUSATE SODIUM 100 MG CAPSULE PO SCH (10:53)
[2019-08-04] MEDS: FAMOTIDINE 20 MG TABLET PO SCH ×2 (10:53→21:53)
[2019-08-04] MEDS: POTASSIUM CHLORIDE 10 MEQ TABLET.ER PO SCH ×3 (10:53→17:06)
[2019-08-04] MEDS: METOPROLOL SUCCINATE 25 MG TAB.SR.24H PO SCH (10:55)
[2019-08-04] MEDS: CLOPIDOGREL BISULFATE 75 MG TABLET PO SCH (10:55)
[2019-08-04] MEDS: LISINOPRIL 5 MG TABLET PO SCH (10:55)
--- NOTE | 2019-08-04 14:57 | PDOC PROGRESS REPORT ---
Subjective Progress Note for:: 08/04/19 Subjective:: The patient is a 49-year-old female with a past medical history of CHF, HTN, obesity, and tobacco dependence who was admitted 08/02/2019 for acute respiratory failure secondary to pulmonary edema and CHF exacerbation. The patient was seen on morning rounds. She was found resting in bed, comfortably, on supplemental oxygen via nasal cannula. She is awake and orient ed x4. She reports compliance with BiPAP overnight (however, nursing notes indicate otherwise). Patient reports that her breathing is somewhat improved; does continue to feel short of breath with mild exertion. She denies cough. She denies previous diagnosis of COPD. She does admit to smoking since the age of 13; most of her life smoking 2 to 3 packs daily (estimated 80 pack years). She denies ever being prescribed CPAP/BiPAP or home O2. Overall she reports that she is feeling better and has no new questions or concerns. She denies fever, chills, chest pain, palpitations, orthopnea, cough, abdominal pain, nausea, vomiting, diarrhea. Nursing notes intermittent noncompliance with oxygen/BiPAP and fluid restriction; otherwise no other concerns. Reason For Visit: ACUTE PULMONARY EDEMA,ACUTE ON CHRONIC SYSTOLIC Physical Exam Vital Signs: Temp Pulse Resp BP Pulse Ox 97.8 F 85 14 131/78 H 92 08/04/19 11:31 08/04/19 14:00 08/04/19 13:46 08/04/19 11:31 08/04/19 13:46 Intake & Output 08/03/19 08/04/19 08/05/19 06:59 06:59 06:59 Intake Total 260 1430 480 Output Total 1600 Balance -1340 1430 480 Weight 99.3 kg 99.5 kg General appearance: PRESENT: no acute distress, obese, well-developed, well- nourished Head exam: PRESENT: atraumatic, normocephalic Eye exam: PRESENT: conjunctiva pink, EOMI, PERRLA. ABSENT: scleral icterus Ear exam: PRESENT: normal external ear exam Mouth exam: PRESENT: moist, tongue midline Teeth exam: PRESENT: poor dentation Neck exam: ABSENT: carotid bruit, JVD, lymphadenopathy, thyromegaly Respiratory exam: PRESENT: prolonged expiratory phas, rhonchi, symmetrical, unlabored, other - Supplemental oxygen by nasal cannula. ABSENT: rales, wheezes Cardiovascular exam: PRESENT: RRR, +S1, +S2. ABSENT: diastolic murmur, rubs, systolic murmur Pulses: PRESENT: normal dorsalis pedis pul Vascular exam: PRESENT: normal capillary refill GI/Abdominal exam: PRESENT: normal bowel sounds, soft. ABSENT: distended, guarding, mass, organolmegaly, rebound, tenderness Rectal exam: PRESENT: deferred Extremities exam: PRESENT: full ROM, +2 edema - BLE. ABSENT: calf tenderness, clubbing, pedal edema Neurological exam: PRESENT: alert, awake, oriented to person, oriented to place, oriented to time, oriented to situation, CN II-XII grossly intact. ABSENT: m otor sensory deficit Psychiatric exam: PRESENT: appropriate affect, normal mood. ABSENT: homicidal ideation, suicidal ideation Skin exam: PRESENT: dry, intact, warm. ABSENT: cyanosis, rash Results Laboratory Results: 08/04/19 04:39 08/04/19 04:39 08/03/19 08/03/19 08/03/19 13:54 16:17 18:20 WBC RBC Hgb Hct MCV MCH MCHC RDW Plt Count Carbonic Acid 3.01 H 2.98 H HCO3/H2CO3 Ratio 16:1 17:1 ABG pH 7.30 L 7.33 L ABG pCO2 100.0 H* 99.0 H* ABG pO2 69.4 L 45.2 L ABG HCO3 48.2 H 50.8 H ABG O2 Saturation 90.8 L 74.4 L ABG Base Excess 15.7 18.3 FiO2 2l 25% Sodium 136.6 L Potassium 4.8 Chloride 89 L Carbon Dioxide 43 H* Anion Gap 5 BUN 16 Creatinine 0.84 Est GFR ( Amer) > 60 Glucose 93 Calcium 8.2 L 08/04/19 08/04/19 08/04/19 04:39 04:39 06:35 WBC 8.7 RBC 5.03 Hgb 15.6 H Hct 49.0 H MCV 98 H MCH 31.1 MCHC 31.9 L RDW 18.1 H Plt Count 172 Carbonic Acid 2.98 H HCO3/H2CO3 Ratio 16:1 ABG pH 7.31 L ABG pCO2 99.0 H* ABG pO2 62.6 L ABG HCO3 48.8 H ABG O2 Saturation 88.1 L ABG Base Excess 16.4 FiO2 50% Sodium 137.3 Potassium 4.7 Chloride 87 L Carbon Dioxide 42 H* Anion Gap 8 BUN 21 H Creatinine 0.79 Est GFR ( Amer) > 60 Glucose 201 H Calcium 8.5 08/02/19 08/02/19 08/02/19 15:43 22:10 22:10 Creatine Kinase 28 L CK-MB (CK-2) 2.87 Troponin I 0.020 0.023 NT-Pro-B Natriuret Pep [id number] H 08/03/19 08/03/19 08/03/19 03:56 03:56 10:40 Creatine Kinase 27 L 26 L CK-MB (CK-2) 2.60 Troponin I 0.027 NT-Pro-B Natriuret Pep 08/03/19 10:40 Creatine Kinase CK-MB (CK-2) 2.04 Troponin I 0.019 NT-Pro-B Natriuret Pep Impressions: Chest X-Ray 08/03/19 00:00 IMPRESSION: CARDIAC ENLARGEMENT. VASCULAR CONGESTION. No improvement. Assessment and Plan - Diagnosis (1) Acute on chronic congestive heart failure Qualifiers: Heart failure type: unspecified Qualified Code(s): I50.9 - Heart failure, unspecified Is this a current diagnosis for this admission?: Yes Plan: Echocardiogram reveals LVEF 50 to 55%. Moderate pulmonary hypertension Patient is admitted to the medical floor on continuous cardiac telemetry. Continue supplemental oxygen and BiPAP as needed to maintain saturations >90% Continues on Lisinopril 2.5 mg daily and Metoprolol XL 25 mg daily. Currently receiving IV furosemide. Cardiology is consulted; medications per their expertise. Cardiac diet. Fluid restricted to 1.5 L daily. (2) Acute pulmonary edema with congestive heart failure Is this a current diagnosis for this admission?: Yes Plan: Secondary to #1 resulting in fluid volume overload. Evaluation and management as above. (3) COPD (chronic obstructive pulmonary disease) Is this a current diagnosis for this admission?: Yes Plan: Patient denies prior history. Highly suspicious given the patient's laboratory findings (partially compensated PCO2 of 100 with normal mentation) Scheduled and as needed nebulizer treatments. IV Solu-Medrol. Pulmonology consultation. Remaining management as below (4) Acute respiratory failure with hypoxia and hypercapnia Is this a current diagnosis for this admission?: Yes Plan: Secondary to #1 - 3 Additionally, I suspect that the patient has underlying COPD with a chronically elevated CO2. ABG on 2 L via nasal cannula revealed pH 7.30, PCO2 100, PO2 69, HCO3 48.2. At time of ABG, patient was alert and oriented, conversational, socially appropriate, and eating her dinner. Hgb 17. All indicate chronic CO2 retention. Continue supplemental oxygen as needed to maintain saturations greater than 89%. Encourage BiPAP use. Continue scheduled and as needed nebulizer treatments. IV Solu-Medrol; perhaps patient's lung sounds are diminished due to COPD exacerbation with tight airways. We will obtain pulmonology consultation. Patient will benefit from overnight sleep study as an outpatient. Careful attention to the patient's mentation/alertness. (5) HTN (hypertension) Is this a current diagnosis for this admission?: Yes Plan: Blood pressures are currently acceptable. Continues on Lisinopril, 2.5 mg daily and Metoprolol XL 25 mg daily. Currently receiving IV furosemide. Cardiology is consulted; medications per their expertise. Cardiac diet. (6) Morbid obesity with BMI of 40.0-44.9, adult Is this a current diagnosis for this admission?: Yes Plan: Dietary discretion and lifestyle modification are encouraged. Patient is placed on a cardiac diet copy operator and patient educator are consulted. (7) Tobacco use disorder, continuous Is this a current diagnosis for this admission?: Yes Plan: Smoking cessation to be encouraged. Nicotine replacement therapies are provided. - Time Time Spent with patient: 35 or more minutes Medications reviewed and adjusted accordingly: Yes Anticipated discharge: Home Within: within 72 hours
--- NOTE | 2019-08-04 16:30 | PDOC PROGRESS REPORT ---
Subjective Progress Note for:: 08/04/19 Subjective:: Patient seen and examined. Quite somnolent. Continues on noninvasive positive pressure ventilation. Does not complain of dyspnea. Reason For Visit: ACUTE PULMONARY EDEMA,ACUTE ON CHRONIC SYSTOLIC Physical Exam Vital Signs: Temp Pulse Resp BP Pulse Ox 97.4 F 80 18 107/64 95 08/04/19 14:47 08/04/19 14:47 08/04/19 14:47 08/04/19 14:47 08/04/19 14:47 Intake & Output 08/03/19 08/04/19 08/05/19 06:59 06:59 06:59 Intake Total 260 1430 480 Output Total 1600 Balance -1340 1430 480 Weight 99.3 kg 99.5 kg General appearance: PRESENT: no acute distress, morbidly obese Head exam: PRESENT: atraumatic, normocephalic Respiratory exam: PRESENT: crackles, decreased breath sounds, prolonged expiratory phas, symmetrical Cardiovascular exam: PRESENT: RRR, +S1, +S2 Pulses: PRESENT: normal radial pulses GI/Abdominal exam: PRESENT: soft Rectal exam: PRESENT: deferred Neurological exam: PRESENT: alert, awake, oriented to person, oriented to place Skin exam: PRESENT: dry, intact Results Laboratory Results: 08/04/19 04:39 08/04/19 04:39 08/03/19 08/03/19 08/04/19 16:17 18:20 04:39 WBC 8.7 RBC 5.03 Hgb 15.6 H Hct 49.0 H MCV 98 H MCH 31.1 MCHC 31.9 L RDW 18.1 H Plt Count 172 Carbonic Acid 3.01 H 2.98 H HCO3/H2CO3 Ratio 16:1 17:1 ABG pH 7.30 L 7.33 L ABG pCO2 100.0 H* 99.0 H* ABG pO2 69.4 L 45.2 L ABG HCO3 48.2 H 50.8 H ABG O2 Saturation 90.8 L 74.4 L ABG Base Excess 15.7 18.3 FiO2 2l 25% Sodium Potassium Chloride Carbon Dioxide Anion Gap BUN Creatinine Est GFR ( Amer) Glucose Calcium 08/04/19 08/04/19 04:39 06:35 WBC RBC Hgb Hct MCV MCH MCHC RDW Plt Count Carbonic Acid 2.98 H HCO3/H2CO3 Ratio 16:1 ABG pH 7.31 L ABG pCO2 99.0 H* ABG pO2 62.6 L ABG HCO3 48.8 H ABG O2 Saturation 88.1 L ABG Base Excess 16.4 FiO2 50% Sodium 137.3 Potassium 4.7 Chloride 87 L Carbon Dioxide 42 H* Anion Gap 8 BUN 21 H Creatinine 0.79 Est GFR ( Amer) > 60 Glucose 201 H Calcium 8.5 08/02/19 08/02/19 08/02/19 15:43 22:10 22:10 Creatine Kinase 28 L CK-MB (CK-2) 2.87 Troponin I 0.020 0.023 NT-Pro-B Natriuret Pep [id number] H 08/03/19 08/03/19 08/03/19 03:56 03:56 10:40 Creatine Kinase 27 L 26 L CK-MB (CK-2) 2.60 Troponin I 0.027 NT-Pro-B Natriuret Pep 08/03/19 10:40 Creatine Kinase CK-MB (CK-2) 2.04 Troponin I 0.019 NT-Pro-B Natriuret Pep Impressions: Chest X-Ray 08/03/19 00:00 IMPRESSION: CARDIAC ENLARGEMENT. VASCULAR CONGESTION. No improvement. Assessment & Plan - Diagnosis (1) Acute pulmonary edema with congestive heart failure Is this a current diagnosis for this admission?: Yes Plan: Patient is consistent with volume overload with pulmonary vascular congestion and dyspnea. Continue diuretic therapy. There seems to be a definite pulmonary component as well with bronchospasm. (2) Essential hypertension Is this a current diagnosis for this admission?: Yes Plan: We will watch blood pressure as we diurese. We will need aggressive control of systemic hypertension (3) Tobacco use disorder, continuous Is this a current diagnosis for this admission?: Yes Plan: Needs to stop smoking given pulmonary issues and volume overload. - Notes Notes: Patient had mentioned to me that she did not have coronary artery disease or stents placed There is no mention of any prior CVA. There is no clear indication to continue clopidogrel unless we get some documentation as to why this was started or has been the home medication for this patient. Would recommend holding this.
[2019-08-04] MEDS: ACETAMINOPHEN 325 MG TABLET PO PRN (19:39)
[2019-08-05] MEDS: IPRATROPIUM/ALBUTEROL 0.5-2.5 MG/3 ML AMPUL NEB SCH ×4 (01:53→20:19)
[2019-08-05] MEDS: FUROSEMIDE INJ/PF 40 MG/4 ML SDV IV SCH ×3 (05:13→22:46)
[2019-08-05] MEDS: METHYLPREDNISOLONE INJ 40 MG/1 ML SDV IV SCH ×2 (05:13→14:11)
[2019-08-05] MEDS: HEPARIN SOD (PORCINE) 5,000 UNIT/ML 1 ML VIAL SUBCUT SCH ×3 (05:14→22:47)
[2019-08-05] MEDS: ACETAMINOPHEN 325 MG TABLET PO PRN (05:15)
[2019-08-05 05:35] LABS: BLOOD UREA NITROGEN 17 mg/dL (7-20); CALCIUM 9.1 mg/dL (8.4-10.2); CHLORIDE 89 mmol/L (98-107); GLUCOSE 176 mg/dL (75-110); POTASSIUM 5.1 mmol/L (3.6-5.0)
[2019-08-05 05:44] LABS: ANION GAP 7 (5-19)
[2019-08-05 05:57] LABS: CARBON DIOXIDE 41 mmol/L (22-30)
[2019-08-05] MEDS ORDERED: LACTULOSE SYRUP 20 GM/30 ML UDCUP PO ONE ×2 (08:00→10:00)
[2019-08-05] MEDS: LISINOPRIL 5 MG TABLET PO SCH (09:40)
[2019-08-05] MEDS: DOCUSATE SODIUM 100 MG CAPSULE PO SCH (09:40)
[2019-08-05] MEDS: METOPROLOL SUCCINATE 25 MG TAB.SR.24H PO SCH (09:40)
[2019-08-05] MEDS: FAMOTIDINE 20 MG TABLET PO SCH ×2 (09:40→22:47)
[2019-08-05] MEDS: POTASSIUM CHLORIDE 10 MEQ TABLET.ER PO SCH ×2 (09:45→11:50)
--- NOTE | 2019-08-05 13:45 | PDOC PROGRESS REPORT ---
Subjective Progress Note for:: 08/05/19 Subjective:: Patient continues to be somnolent. Presently is not on noninvasive ventilation. Seems very comfortable. Reason For Visit: ACUTE PULMONARY EDEMA,ACUTE ON CHRONIC SYSTOLIC Physical Exam Vital Signs: Temp Pulse Resp BP Pulse Ox 98.3 F 89 18 125/73 91 L 08/05/19 11:07 08/05/19 11:07 08/05/19 11:07 08/05/19 11:07 08/05/19 11:07 Intake & Output 08/04/19 08/05/19 08/06/19 06:59 06:59 06:59 Intake Total 1430 1390 580 Balance 1430 1390 580 Weight 99.5 kg 99.2 kg General appearance: PRESENT: no acute distress, cooperative, morbidly obese Head exam: PRESENT: atraumatic, normocephalic Mouth exam: PRESENT: moist Respiratory exam: PRESENT: symmetrical, unlabored Cardiovascular exam: PRESENT: RRR, +S1, +S2 GI/Abdominal exam: PRESENT: soft Rectal exam: PRESENT: deferred Skin exam: PRESENT: dry, intact, normal color Results Laboratory Results: 08/04/19 04:39 08/05/19 03:57 08/05/19 03:57 Sodium 136.8 L Potassium 5.1 H Chloride 89 L Carbon Dioxide 41 H* Anion Gap 7 BUN 17 Creatinine 0.83 Est GFR ( Amer) > 60 Glucose 176 H Calcium 9.1 08/02/19 08/02/19 08/02/19 15:43 22:10 22:10 Creatine Kinase 28 L CK-MB (CK-2) 2.87 Troponin I 0.020 0.023 NT-Pro-B Natriuret Pep [id number] H 08/03/19 08/03/19 08/03/19 03:56 03:56 10:40 Creatine Kinase 27 L 26 L CK-MB (CK-2) 2.60 Troponin I 0.027 NT-Pro-B Natriuret Pep 08/03/19 10:40 Creatine Kinase CK-MB (CK-2) 2.04 Troponin I 0.019 NT-Pro-B Natriuret Pep Impressions: Chest X-Ray 08/03/19 00:00 IMPRESSION: CARDIAC ENLARGEMENT. VASCULAR CONGESTION. No improvement. Assessment & Plan - Diagnosis (1) Acute pulmonary edema with congestive heart failure Is this a current diagnosis for this admission?: Yes Plan: Volume status is hard to gauge However since admission and was diuretic therapy patient's condition has improved Awaiting pulmonary input regarding hypercarbia (2) Essential hypertension Is this a current diagnosis for this admission?: Yes Plan: We will watch blood pressure as we diurese. We will need aggressive control of systemic hypertension (3) Tobacco use disorder, continuous Is this a current diagnosis for this admission?: Yes Plan: Needs to stop smoking given pulmonary issues and volume overload.
--- NOTE | 2019-08-05 14:57 | PDOC CONSULTATION ---
Consultation Consult Date: 08/04/19 Attending physician:: ZAFAR FAROOQ Provider Consulted: NAHEED FALCON Consult reason:: Hypercapnic respiratory failure History of Present Illness Admission Date/PCP: 08/02/19 19:43 History of Present Illness: ANGÉLICA DOUGLASS is a 49 year old female,Presented to the hospital emergency room after 1 month increasing shortness of breath and leg swelling she denies cough or hemoptysis until she got in the hospital at which point she was coughing up clear phlegm her congestive heart failure has been treated on several occasions with incremental increases in her Lasix however this failed to christina her leg swelling or her dyspnea. When in the emergency room she was found to be hypoxic and was subsequently admitted she responded well to nasal oxygen and better to BiPAP Past Medical History Cardiac Medical History: Reports: Congestive Heart Failure, Hypertension Denies: Atrial Fibrillation, Coronary Artery Disease, Myocardial Infarction, Hyperlipidema Pulmonary Medical History: Denies: Asthma, Chronic Obstructive Pulmonary Disease (COPD) EENT Medical History: Denies: Cataracts, Ears - Hearing aids Neurological Medical History: Denies: Hemorrhagic CVA, Ischemic CVA, Seizures Endocrine Medical History: Reports: Obesity Denies: Diabetes Mellitus Type 1, Diabetes Mellitus Type 2, Hyperthyroidism, Hypothyroidism Renal/ Medical History: Reports: Other - Endometriosis Denies: Chronic Kidney Disease, Nephrolithiasis Malignancy Medical History: Reports: None GI Medical History: Denies: Cirrhosis, Crohn's Disease, Gastroesophageal Reflux Disease, Hepatitis, Peptic Ulcer Disease, Ulcerative Colitis Musculoskeltal Medical History: Denies: Arthritis, Gout Skin Medical History: Denies: Eczema, Psoriasis Psychiatric Medical History: Reports: Tobacco Dependency Denies: Alcohol Dependency, Substance Abuse Traumatic Medical History: Reports: None Hematology: Denies: Anemia, Bleeding Tendencies Infectious Medical History: Reports: None Past Surgical History Past Surgical History: Reports: Section, Cholecystectomy, Hysterectomy, Knee Replacement, Orthopedic Surgery - back X2, right knee and right ankle, Tonsillectomy, Other - Numerous laparoscopies for endometriosis Social History Lives with: Family Smoking Status: Current Every Day Smoker Cigarettes Packs Per Day: 0.5 Frequency of Alcohol Use: None Hx Recreational Drug Use: No Drugs: None Hx Prescription Drug Abuse: No - Advance Directive Resuscitation Status: Full Code Family History Family History: CAD, Hypertension, Malignancy. denies: DM Parental Family History Reviewed: Yes Children Family History Reviewed: Yes Sibling(s) Family History Reviewed.: Yes Medication/Allergy Home Medications: Furosemide [Lasix 20 mg Tablet] 20 mg PO BID 08/03/19 Metoprolol Succinate [Toprol Xl 25 mg Tab.sr] 25 mg PO DAILY 08/03/19 Allergies/Adverse Reactions: aspirin Allergy (Verified 08/02/19 14:45) gabapentin [From Neurontin] Allergy (Verified 08/02/19 14:45) Sulfa (Sulfonamide Antibiotics) Allergy (Verified 08/02/19 14:45) adhesive tape Adverse Reaction (Verified 08/02/19 14:45) Review of Systems All systems: reviewed and no additional remarkable complaints except as stated Physical Exam Vital Signs: Temp Pulse Resp BP Pulse Ox 97.8 F 84 14 131/78 H 92 08/04/19 11:31 08/04/19 13:36 08/04/19 13:46 08/04/19 11:31 08/04/19 13:46 Intake & Output 08/03/19 08/04/19 08/05/19 06:59 06:59 06:59 Intake Total 260 1430 Output Total 1600 Balance -1340 1430 Weight 99.3 kg 99.5 kg General appearance: PRESENT: no acute distress, cooperative, disheveled, morbidly obese, well-developed, well-nourished Head exam: PRESENT: atraumatic, normocephalic Eye exam: PRESENT: conjunctiva pale, EOMI. ABSENT: nystagmus, scleral icterus Mouth exam: PRESENT: dry mucosa, neck supple, tongue midline Neck exam: ABSENT: carotid bruit, full ROM, JVD, lymphadenopathy, meningismus, tenderness, thyromegaly, tracheal deviation, tracheostomy, other Respiratory exam: PRESENT: decreased breath sounds, prolonged expiratory phas, rales, retraction, rhonchi, unlabored, wheezes. ABSENT: stridor, tachypnea Cardiovascular exam: PRESENT: RRR, +S1, +S2, tachycardia Pulses: PRESENT: normal radial pulses GI/Abdominal exam: PRESENT: soft. ABSENT: distended, guarding, mass, rebound, tenderness Extremities exam: PRESENT: +2 edema. ABSENT: calf tenderness, clubbing, joint swelling, tenderness Musculoskeletal exam: ABSENT: deformity, dislocation Neurological exam: PRESENT: alert, awake Psychiatric exam: PRESENT: appropriate affect Skin exam: PRESENT: dry, warm Results Laboratory Results: 08/04/19 04:39 08/04/19 04:39 08/03/19 08/03/19 08/03/19 13:54 16:17 18:20 WBC RBC Hgb Hct MCV MCH MCHC RDW Plt Count Carbonic Acid 3.01 H 2.98 H HCO3/H2CO3 Ratio 16:1 17:1 ABG pH 7.30 L 7.33 L ABG pCO2 100.0 H* 99.0 H* ABG pO2 69.4 L 45.2 L ABG HCO3 48.2 H 50.8 H ABG O2 Saturation 90.8 L 74.4 L ABG Base Excess 15.7 18.3 FiO2 2l 25% Sodium 136.6 L Potassium 4.8 Chloride 89 L Carbon Dioxide 43 H* Anion Gap 5 BUN 16 Creatinine 0.84 Est GFR ( Amer) > 60 Glucose 93 Calcium 8.2 L 08/04/19 08/04/19 08/04/19 04:39 04:39 06:35 WBC 8.7 RBC 5.03 Hgb 15.6 H Hct 49.0 H MCV 98 H MCH 31.1 MCHC 31.9 L RDW 18.1 H Plt Count 172 Carbonic Acid 2.98 H HCO3/H2CO3 Ratio 16:1 ABG pH 7.31 L ABG pCO2 99.0 H* ABG pO2 62.6 L ABG HCO3 48.8 H ABG O2 Saturation 88.1 L ABG Base Excess 16.4 FiO2 50% Sodium 137.3 Potassium 4.7 Chloride 87 L Carbon Dioxide 42 H* Anion Gap 8 BUN 21 H Creatinine 0.79 Est GFR ( Amer) > 60 Glucose 201 H Calcium 8.5 08/02/19 08/02/19 08/02/19 15:43 22:10 22:10 Creatine Kinase 28 L CK-MB (CK-2) 2.87 Troponin I 0.020 0.023 NT-Pro-B Natriuret Pep [id number] H 08/03/19 08/03/19 08/03/19 03:56 03:56 10:40 Creatine Kinase 27 L 26 L CK-MB (CK-2) 2.60 Troponin I 0.027 NT-Pro-B Natriuret Pep 08/03/19 10:40 Creatine Kinase CK-MB (CK-2) 2.04 Troponin I 0.019 NT-Pro-B Natriuret Pep Impressions: Chest X-Ray 08/03/19 00:00 IMPRESSION: CARDIAC ENLARGEMENT. VASCULAR CONGESTION. No improvement. Assessment & Plan - Diagnosis (1) Obesity hypoventilation syndrome Is this a current diagnosis for this admission?: Yes Plan: The above patient has failed BiPAP with a patent airway. This patient would benefit from noninvasive mechanical ventilation via the trilogy AVAPS/AE and faster responding AVAPS rates. The trilogy is able to provide a target tidal volume and also adjusting the EPAP pressures to maintain a patent airway as well as an oral backup rate this machine will help improve PaCO2 levels. The severity of the patient's condition will lead to future hospitalizations and readmissions as well as life-threatening situations without the use of this device day and night. Trilogy home vent needed for hypercapnic respiratory fail ure. [facility] or [facility] [place] to follow for trilogy set up. nutritional consult (2) Acute on chronic congestive heart failure Qualifiers: Heart failure type: unspecified Qualified Code(s): I50.9 - Heart failure, unspecified Is this a current diagnosis for this admission?: Yes Plan: Per cardiology (3) Acute respiratory failure with hypoxia and hypercapnia Is this a current diagnosis for this admission?: Yes Plan: supp O2 and NIPPV (4) Essential hypertension Is this a current diagnosis for this admission?: Yes Plan: as per pcp (5) Morbid obesity with BMI of 40.0-44.9, adult Is this a current diagnosis for this admission?: Yes Plan: nutritional consult (6) Tobacco use disorder, continuous Is this a current diagnosis for this admission?: Yes Plan: Discussed at length length risk and dangers associated with continued tobacco use - Time Time Spent: 50 to 70 Minutes
--- NOTE | 2019-08-05 16:31 | PDOC PROGRESS REPORT ---
Subjective Progress Note for:: 08/05/19 Subjective:: The patient is a 49-year-old female with a past medical history of CHF, HTN, obesity, and tobacco dependence who was admitted 08/02/2019 for acute respiratory failure secondary to pulmonary edema and CHF exacerbation. The patient was seen on morning rounds. She was found resting in bed, comfortably, on supplemental oxygen via nasal cannula. She was sleeping soundl y; it did take several attempts to wake her. Once awake, though, she was alert oriented x4. She reports compliance with BiPAP overnight. Patient reports that her breathing is improved; decreased shortness of breath with ambulation. She denies cough. Peripheral edema also noted to have improved. Overall she reports that she is feeling better and has no new questions or concerns. She denies fever, chills, chest pain, palpitations, orthopnea, cough, abdominal pain, nausea, vomiting, diarrhea. No concerns per nursing today. Reason For Visit: ACUTE PULMONARY EDEMA,ACUTE ON CHRONIC SYSTOLIC Physical Exam Vital Signs: Temp Pulse Resp BP Pulse Ox 99.1 F 82 20 116/80 95 08/05/19 14:48 08/05/19 14:48 08/05/19 14:48 08/05/19 14:48 08/05/19 14:48 Intake & Output 08/04/19 08/05/19 08/06/19 06:59 06:59 06:59 Intake Total 1430 1390 580 Balance 1430 1390 580 Weight 99.5 kg 99.2 kg General appearance: PRESENT: no acute distress, cooperative, obese, well- developed, well-nourished Head exam: PRESENT: atraumatic, normocephalic Eye exam: PRESENT: conjunctiva pink, EOMI, PERRLA. ABSENT: scleral icterus Ear exam: PRESENT: normal external ear exam Mouth exam: PRESENT: moist, tongue midline Teeth exam: PRESENT: poor dentation Respiratory exam: PRESENT: clear to auscultation carli, prolonged expiratory phas, symmetrical, unlabored, other. ABSENT: rales, rhonchi, wheezes Cardiovascular exam: PRESENT: RRR, +S1, +S2 - Supplemental oxygen by nasal cannula. ABSENT: diastolic murmur, rubs, systolic murmur Vascular exam: PRESENT: normal capillary refill GI/Abdominal exam: PRESENT: normal bowel sounds, soft. ABSENT: distended, guarding, mass, organolmegaly, rebound, tenderness Rectal exam: PRESENT: deferred Extremities exam: PRESENT: full ROM, pedal edema - +2 pitting bilaterally. ABSENT: calf tenderness, clubbing Neurological exam: PRESENT: alert, awake, oriented to person, oriented to place, oriented to time, oriented to situation, CN II-XII grossly intact. ABSENT: motor sensory deficit Psychiatric exam: PRESENT: appropriate affect, normal mood. ABSENT: homicidal ideation, suicidal ideation Skin exam: PRESENT: dry, intact, warm. ABSENT: cyanosis, rash Results Laboratory Results: 08/04/19 04:39 08/05/19 03:57 08/05/19 03:57 Sodium 136.8 L Potassium 5.1 H Chloride 89 L Carbon Dioxide 41 H* Anion Gap 7 BUN 17 Creatinine 0.83 Est GFR ( Amer) > 60 Glucose 176 H Calcium 9.1 08/02/19 08/02/19 08/02/19 15:43 22:10 22:10 Creatine Kinase 28 L CK-MB (CK-2) 2.87 Troponin I 0.020 0.023 NT-Pro-B Natriuret Pep 36261 H 08/03/19 08/03/19 08/03/19 03:56 03:56 10:40 Creatine Kinase 27 L 26 L CK-MB (CK-2) 2.60 Troponin I 0.027 NT-Pro-B Natriuret Pep 08/03/19 10:40 Creatine Kinase CK-MB (CK-2) 2.04 Troponin I 0.019 NT-Pro-B Natriuret Pep Impressions: Chest X-Ray 08/03/19 00:00 IMPRESSION: CARDIAC ENLARGEMENT. VASCULAR CONGESTION. No improvement. Assessment and Plan - Diagnosis (1) Acute on chronic congestive heart failure Qualifiers: Heart failure type: unspecified Qualified Code(s): I50.9 - Heart failure, unspecified Is this a current diagnosis for this admission?: Yes Plan: Echocardiogram reveals LVEF 50 to 55%. Moderate pulmonary hypertension Patient is admitted to the medical floor on continuous cardiac telemetry. Continue supplemental oxygen and BiPAP as needed to maintain saturations >90% Continues on Lisinopril 2.5 mg daily and Metoprolol XL 25 mg daily. Currently receiving IV furosemide. Cardiology is consulted; medications per their expertise. Cardiac diet. Fluid restricted to 1.5 L daily. Daily weights, strict I&O's. (2) Acute pulmonary edema with congestive heart failure Is this a current diagnosis for this admission?: Yes Plan: Secondary to #1 resulting in fluid volume overload. Evaluation and management as above. (3) COPD (chronic obstructive pulmonary disease) Is this a current diagnosis for this admission?: Yes Plan: Patient denies prior history. Highly suspicious given the patient's laboratory findings (partially compensated PCO2 of 100 with normal mentation) Scheduled and as needed nebulizer treatments. Lung sounds remain clear; no wheezing. Will discontinue steroids today. Pulmonology consultation. Discussed with Dr. Mahoney today; he is looking into either trilogy or BiPAP for at home due to obesity hypoventilation syndrome. Remaining management as below (4) Obesity hypoventilation syndrome Is this a current diagnosis for this admission?: Yes Plan: Pulmonology consulted. Discussed with Dr. Mahoney today; he is looking into either trilogy for home use. (5) Acute respiratory failure with hypoxia and hypercapnia Is this a current diagnosis for this admission?: Yes Plan: Secondary to #1 - 4 ABG on 2 L via nasal cannula revealed pH 7.30, PCO2 100, PO2 69, HCO3 48.2. At time of ABG, patient was alert and oriented, conversational, socially appropriat e, and eating her dinner. Hgb 17. All indicate chronic CO2 retention. Continue supplemental oxygen as needed to maintain saturations greater than 89%. Encourage BiPAP use. Continue scheduled and as needed nebulizer treatments. Pulmonology is consulted; appreciate Dr. Mahoney's evaluation recommendations. Recommending home trilogy device. Patient will benefit from overnight sleep study as an outpatient. Careful attention to the patient's mentation/alertness. (6) HTN (hypertension) Is this a current diagnosis for this admission?: Yes Plan: Blood pressures are currently acceptable. Continues on Lisinopril, 2.5 mg daily and Metoprolol XL 25 mg daily. Currently receiving IV furosemide. Cardiology is consulted; medications per their expertise. Cardiac diet. (7) Morbid obesity with BMI of 40.0-44.9, adult Is this a current diagnosis for this admission?: Yes Plan: Dietary discretion and lifestyle modification are encouraged. Patient is placed on a cardiac diet business process engineer and patient educator are consulted. (8) Tobacco use disorder, continuous Is this a current diagnosis for this admission?: Yes Plan: Smoking cessation to be encouraged. Nicotine replacement therapies are provided. - Time Time Spent with patient: 35 or more minutes Medications reviewed and adjusted accordingly: Yes Anticipated discharge: Home Within: within 48 hours
[2019-08-06] MEDS: IPRATROPIUM/ALBUTEROL 0.5-2.5 MG/3 ML AMPUL NEB SCH ×3 (01:47→14:02)
[2019-08-06 05:29] LABS: HEMATOCRIT 53.5 % (36.0-47.0); HEMOGLOBIN 16.8 g/dL (12.0-15.5); MEAN CORPUSCULAR HEMOGLOBIN 30.5 pg (27.0-33.4); MEAN CORPUSCULAR HGB CONC 31.4 g/dL (32.0-36.0); MEAN CORPUSCULAR VOLUME 97 fl (80-97); PLATELET COUNT 189 10^3/uL (150-450); RED BLOOD COUNT 5.51 10^6/uL (3.72-5.28); RED CELL DISTRIBUTION WIDTH 18.4 % (11.5-14.0); WHITE BLOOD COUNT 13.1 10^3/uL (4.0-10.5)
[2019-08-06 05:53] LABS: BLOOD UREA NITROGEN 24 mg/dL (7-20); CALCIUM 9.7 mg/dL (8.4-10.2); CHLORIDE 88 mmol/L (98-107); GLUCOSE 159 mg/dL (75-110); POTASSIUM 4.5 mmol/L (3.6-5.0)
[2019-08-06 06:00] LABS: ANION GAP 10 (5-19)
[2019-08-06] MEDS: HEPARIN SOD (PORCINE) 5,000 UNIT/ML 1 ML VIAL SUBCUT SCH ×2 (06:11→14:38)
[2019-08-06] MEDS: FUROSEMIDE INJ/PF 40 MG/4 ML SDV IV SCH ×2 (06:11→14:38)
[2019-08-06 07:01] LABS: CARBON DIOXIDE 40 mmol/L (22-30)
[2019-08-06] MEDS: LISINOPRIL 5 MG TABLET PO SCH (09:40)
[2019-08-06] MEDS: FAMOTIDINE 20 MG TABLET PO SCH (09:41)
[2019-08-06] MEDS: METOPROLOL SUCCINATE 25 MG TAB.SR.24H PO SCH (09:41)
[2019-08-06] MEDS: DOCUSATE SODIUM 100 MG CAPSULE PO SCH (09:41)
--- NOTE | 2019-08-06 10:58 | PDOC PROGRESS REPORT ---
Subjective Progress Note for:: 08/06/19 Subjective:: More awake and feels better Reason For Visit: ACUTE PULMONARY EDEMA,ACUTE ON CHRONIC SYSTOLIC Physical Exam Vital Signs: Temp Pulse Resp BP Pulse Ox 98.0 F 77 18 118/77 93 08/06/19 07:09 08/06/19 07:09 08/06/19 07:09 08/06/19 07:09 08/06/19 07:09 Intake & Output 08/05/19 08/06/19 08/07/19 06:59 06:59 06:59 Intake Total 1390 1370 Balance 1390 1370 Weight 99.2 kg 99.3 kg General appearance: PRESENT: no acute distress, cooperative, morbidly obese Head exam: PRESENT: atraumatic Eye exam: PRESENT: conjunctiva pink, EOMI Mouth exam: PRESENT: moist Respiratory exam: PRESENT: prolonged expiratory phas, symmetrical Cardiovascular exam: PRESENT: RRR Pulses: PRESENT: normal radial pulses GI/Abdominal exam: PRESENT: soft Rectal exam: PRESENT: deferred Neurological exam: PRESENT: alert, awake, oriented to person, oriented to place, oriented to time, oriented to situation Psychiatric exam: PRESENT: appropriate affect Skin exam: PRESENT: dry, intact Results Laboratory Results: 08/06/19 03:46 08/06/19 03:46 08/06/19 08/06/19 03:46 03:46 WBC 13.1 H RBC 5.51 H Hgb 16.8 H Hct 53.5 H MCV 97 MCH 30.5 MCHC 31.4 L RDW 18.4 H Plt Count 189 Sodium 137.6 Potassium 4.5 Chloride 88 L Carbon Dioxide 40 H* Anion Gap 10 BUN 24 H Creatinine 0.87 Est GFR ( Amer) > 60 Glucose 159 H Calcium 9.7 08/02/19 08/02/19 08/02/19 15:43 22:10 22:10 Creatine Kinase 28 L CK-MB (CK-2) 2.87 Troponin I 0.020 0.023 NT-Pro-B Natriuret Pep [id number] H 08/03/19 08/03/19 08/03/19 03:56 03:56 10:40 Creatine Kinase 27 L 26 L CK-MB (CK-2) 2.60 Troponin I 0.027 NT-Pro-B Natriuret Pep 08/03/19 08/06/19 10:40 03:46 Creatine Kinase CK-MB (CK-2) 2.04 Troponin I 0.019 NT-Pro-B Natriuret Pep 3610 H Impressions: Chest X-Ray 08/03/19 00:00 IMPRESSION: CARDIAC ENLARGEMENT. VASCULAR CONGESTION. No improvement. Assessment & Plan - Diagnosis (1) Acute pulmonary edema with congestive heart failure Is this a current diagnosis for this admission?: Yes Plan: Since admission and was diuretic therapy patient's condition has improved Likely needs some maintenance diuretic (2) Essential hypertension Is this a current diagnosis for this admission?: Yes Plan: Avoid added salt in diet We will need aggressive control of systemic hypertension (3) Tobacco use disorder, continuous Is this a current diagnosis for this admission?: Yes Plan: Needs to stop smoking given pulmonary issues and volume overload. Has promised to try
[2019-08-06 16:37] VITALS: BP 123/84
--- NOTE | 2019-08-06 18:32 | PDOC DISCHARGE SUMMARY ---
Impression - Admit/DC Date/PCP Admission Date/Primary Care Provider: 08/02/19 19:43 Discharge Date: 08/06/19 - Discharge Diagnosis (1) Acute on chronic congestive heart failure Is this a current diagnosis for this admission?: Yes (2) Acute pulmonary edema with congestive heart failure Is this a current diagnosis for this admission?: Yes (3) COPD (chronic obstructive pulmonary disease) Is this a current diagnosis for this admission?: Yes (4) Obesity hypoventilation syndrome Is this a current diagnosis for this admission?: Yes (5) Acute respiratory failure with hypoxia and hypercapnia Is this a current diagnosis for this admission?: Yes (6) HTN (hypertension) Is this a current diagnosis for this admission?: Yes (7) Morbid obesity with BMI of 40.0-44.9, adult Is this a current diagnosis for this admission?: Yes (8) Tobacco use disorder, continuous Is this a current diagnosis for this admission?: Yes - Additional Information Resuscitation Status: Full Code Discharge Diet: Cardiac Discharge Activity: Activity As Tolerated, Balance Activity w/Rest, Slowly Increase Activity, Weigh Daily Referrals: [facility] [Provider Group] (Follow up within 1 week. Office closes at 12 noon on friday's.) TIFFANY MITTAL MD [ACTIVE STAFF] - (Follow up within 4-6 weeks. FIRST OFFICE VISIT MANUEL BE $75.00 PAYABLE AT TIME OF SERVICE.) Prescriptions: Ipratropium/Albuterol Sulfate [Duoneb 3 ml Ampul] 3 ml NEB RTQ6HP PRN #60 vial.neb PRN Reason: For Wheezing Furosemide [Lasix 20 mg Tablet] 40 mg PO BID #120 Nebulizer [Nebulizer Machine] 1 each MC ASDIR PRN #1 kit PRN Reason: Nicotine [Nicoderm 21 mg/24 Hr Transderm Patch] 1 each TD DAILYP PRN #30 patch.td24 PRN Reason: Lisinopril [Prinivil 5 mg Tablet] 5 mg PO DAILY #30 tablet Home Medications: Metoprolol Succinate [Toprol Xl 25 mg Tab.sr] 25 mg PO DAILY 08/03/19 Acetaminophen [Tylenol 325 mg Tablet] 650 mg PO Q4HP PRN tablet 08/06/19 Docusate Sodium [Colace 100 mg Capsule] 100 mg PO DAILY capsule 08/06/19 Furosemide [Lasix 20 mg Tablet] 40 mg PO BID #120 08/06/19 Guaifenesin [Robitussin Syrup 200 mg/10 ml Ud Cup] 200 mg PO Q4HP PRN udc 08/06/19 Ipratropium/Albuterol Sulfate [Duoneb 3 ml Ampul] 3 ml NEB RTQ6HP PRN #60 vial.neb 08/06/19 Lisinopril [Prinivil 5 mg Tablet] 5 mg PO DAILY #30 tablet 08/06/19 Nebulizer [Nebulizer Machine] 1 each MC ASDIR PRN #1 kit 08/06/19 Nicotine [Nicoderm 21 mg/24 Hr Transderm Patch] 1 each TD DAILYP PRN #30 patch.td24 08/06/19 History of Present Illiness History of Present Illness: Per H&P by Dr. Payne: ANGÉLICA DOUGLASS is a 49 year old female who presents to the emergency room with a 1 month history of dyspnea. She admits to gradually worsening dyspnea accompanying dyspnea on exertion and associated bilateral leg swelling and orthopnea all becoming progressively worse over the last 1 month. She was seen at the [facility] in late June and was treated for heart failure by increasing her Lasix 20 mg to twice a day without any improvement. She denies other associated or accompanying signs and symptoms she admits a prior similar but far less severe episode when she was diagnosed with heart failure several years ago. She has not identified any additional aggravating or ameliorating factors for her dyspnea. In the emergency room she was found to have an elevated BNP with acute pulmonary edema demonstrated radiographically and was noted to require oxygen to maintain an adequate O2 saturation. She was subsequently admitted to the hospital for further evaluation and treatment. Hospital Course Hospital Course: The patient was admitted to the medical floor on continuous cardiac telemetry. She was provided supplemental oxygen and BiPAP as needed to maintain oxygen saturations greater than 89%. Echocardiogram revealed LVEF of 50 to 55% with moderate pulmonary hypertension. She was started on metoprolol XL 25 mg daily and lisinopril 2.5 mg daily. She was diuresed with IV furosemide; transitioned to p.o. furosemide 40 mg twice daily at discharge. She was fluid restricted to 1.5 L daily. She met with registered dietitian and patient educator. Cardiology services were consulted; patient to follow-up with Dr. Mittal in 4 to 6 weeks. The patient was noted to have acute on chronic respiratory failure with hypoxia and hypercapnia. She was supported with oxygen, BiPAP, scheduled as needed nebulizer treatments, and steroid therapy. Pulmonology was consulted; Dr. Mahoney has made arrangements for the patient to receive trilogy device for management of the patient's obesity hypoventilation syndrome. Patient is instructed to follow-up with Dr. Mahoney within 4 to 6 weeks for continued management of her chronic respiratory conditions. The patient's hypertension was adequately managed with the above-mentioned metoprolol and lisinopril. Smoking cessation was strongly encouraged and nicotine replacement therapies provided. The patient's respiratory status gradually improved, however, at discharge, she continues to require supplemental oxygen secondary to her CHF, pulmonary hypertension, and obesity hypoventilation syndrome. Arrangements have been made for patient to receive home O2. She is discharged home in stable condition. She is advised to follow-up with her primary care provider within 1 week, and with pulmonology and cardiology services within 4 to 6 weeks. She is encouraged to obtain supplemental oxygen and trilogy; unfortunately, the patient is uninsured and will have to make financial arrangements. She is instructed to take her medications as prescribed. She is strongly encouraged to discontinue smoking. She is advised to return to the emergency department as needed for concerning symptoms. Physical Exam Vital Signs: Temp Pulse Resp BP Pulse Ox 98.2 F 87 19 123/84 94 08/06/19 16:00 08/06/19 16:00 08/06/19 16:00 08/06/19 16:00 08/06/19 16:00 Intake & Output 08/05/19 08/06/19 08/07/19 06:59 06:59 06:59 Intake Total 1390 1370 750 Balance 1390 1370 750 Weight 99.2 kg 99.3 kg General appearance: PRESENT: no acute distress, cooperative, morbidly obese, well-developed, well-nourished Head exam: PRESENT: atraumatic, normocephalic Eye exam: PRESENT: conjunctiva pink, EOMI, PERRLA. ABSENT: scleral icterus Ear exam: PRESENT: normal external ear exam Mouth exam: PRESENT: moist, tongue midline Teeth exam: PRESENT: poor dentation Respiratory exam: PRESENT: clear to auscultation carli, symmetrical, unlabored, other - Supplemental oxygen by nasal cannula. ABSENT: rales, rhonchi, wheezes Cardiovascular exam: PRESENT: RRR, +S1, +S2. ABSENT: diastolic murmur, rubs, systolic murmur Pulses: PRESENT: normal dorsalis pedis pul Vascular exam: PRESENT: normal capillary refill GI/Abdominal exam: PRESENT: normal bowel sounds, soft. ABSENT: distended, guarding, mass, organolmegaly, rebound, tenderness Rectal exam: PRESENT: deferred Extremities exam: PRESENT: full ROM. ABSENT: calf tenderness, clubbing, pedal edema Musculoskeletal exam: PRESENT: ambulatory Neurological exam: PRESENT: alert, awake, oriented to person, oriented to place, oriented to time, oriented to situation, CN II-XII grossly intact. ABSENT: motor sensory deficit Psychiatric exam: PRESENT: anxious, depressed. ABSENT: homicidal ideation, suicidal ideation Skin exam: PRESENT: dry, intact, warm. ABSENT: cyanosis, rash Results Laboratory Results: WBC 13.1 10^3/uL (4.0-10.5) H 08/06/19 03:46 RBC 5.51 10^6/uL (3.72-5.28) H 08/06/19 03:46 Hgb 16.8 g/dL (12.0-15.5) H 08/06/19 03:46 Hct 53.5 % (36.0-47.0) H 08/06/19 03:46 MCV 97 fl (80-97) 08/06/19 03:46 MCH 30.5 pg (27.0-33.4) 08/06/19 03:46 MCHC 31.4 g/dL (32.0-36.0) L 08/06/19 03:46 RDW 18.4 % (11.5-14.0) H 08/06/19 03:46 Plt Count 189 10^3/uL (150-450) 08/06/19 03:46 Lymph % (Auto) 20.1 % (13-45) 08/03/19 03:56 [place] % (Auto) 8.6 % (3-13) 08/03/19 03:56 Eos % (Auto) 2.6 % (0-6) 08/03/19 03:56 Baso % (Auto) 0.7 % (0-2) 08/03/19 03:56 Absolute Neuts (auto) 6.0 10^3/uL (1.7-8.2) 08/03/19 03:56 Absolute Lymphs (auto) 1.8 10^3/uL (0.5-4.7) 08/03/19 03:56 Absolute Monos (auto) 0.8 10^3/uL (0.1-1.4) 08/03/19 03:56 Absolute Eos (auto) 0.2 10^3/uL (0.0-0.6) 08/03/19 03:56 Absolute Basos (auto) 0.1 10^3/uL (0.0-0.2) 08/03/19 03:56 Seg Neutrophils % 68.0 % (42-78) 08/03/19 03:56 Carbonic Acid 2.98 mmol/L (1.05-1.35) H 08/04/19 06:35 HCO3/H2CO3 Ratio 16:1 08/04/19 06:35 ABG pH 7.31 (7.35-7.45) L 08/04/19 06:35 ABG pCO2 99.0 mmHg (35-45) H* 08/04/19 06:35 ABG pO2 62.6 mmHg (80-100) L 08/04/19 06:35 ABG HCO3 48.8 mmol/L (20-24) H 08/04/19 06:35 ABG Total CO2 51.9 mmol/L (21-25) H 08/04/19 06:35 ABG O2 Saturation 88.1 % (94-98) L 08/04/19 06:35 ABG Base Excess 16.4 mmol/L 08/04/19 06:35 FiO2 50% 08/04/19 06:35 Sodium 137.6 mmol/L (137-145) 08/06/19 03:46 Potassium 4.5 mmol/L (3.6-5.0) 08/06/19 03:46 Chloride 88 mmol/L (98-107) L 08/06/19 03:46 Carbon Dioxide 40 mmol/L (22-30) H* 08/06/19 03:46 Anion Gap 10 (5-19) 08/06/19 03:46 BUN 24 mg/dL (7-20) H 08/06/19 03:46 Creatinine 0.87 mg/dL (0.52-1.25) 08/06/19 03:46 Est GFR ( Amer) > 60 (>60) 08/06/19 03:46 Est GFR (MDRD) Non-Af > 60 (>60) 08/06/19 03:46 Glucose 159 mg/dL (75-110) H 08/06/19 03:46 Hemoglobin A1c % 6.5 % (4.7-6.0) H 08/03/19 03:56 Calcium 9.7 mg/dL (8.4-10.2) 08/06/19 03:46 Magnesium 2.2 mg/dL (1.6-2.3) 08/03/19 03:56 Total Bilirubin 0.6 mg/dL (0.2-1.3) 08/02/19 15:43 Direct Bilirubin 0.3 mg/dL (0.0-0.4) 08/02/19 15:43 Neonat Total Bilirubin Not Reportable 08/02/19 15:43 Neonat Direct Bilirubin Not Reportable 08/02/19 15:43 Neonat Indirect Bili Not Reportable 08/02/19 15:43 AST 22 U/L (14-36) 08/02/19 15:43 ALT 18 U/L (<35) 08/02/19 15:43 Alkaline Phosphatase 72 U/L (38-126) 08/02/19 15:43 Creatine Kinase 26 U/L (30-135) L 08/03/19 10:40 CK-MB (CK-2) 2.04 ng/mL (<4.55) 08/03/19 10:40 Troponin I 0.019 ng/mL 08/03/19 10:40 NT-Pro-B Natriuret Pep 3610 pg/mL (<125) H 08/06/19 03:46 Total Protein 6.4 g/dL (6.3-8.2) 08/02/19 15:43 Albumin 3.3 g/dL (3.5-5.0) L 08/02/19 15:43 Triglycerides 119 mg/dL (<150) 08/03/19 03:56 Cholesterol 133.17 mg/dL (0-200) 08/03/19 03:56 LDL Cholesterol Direct 107 mg/dL (<100) H 08/03/19 03:56 VLDL Cholesterol 24.0 mg/dL (10-31) 08/03/19 03:56 HDL Cholesterol 24 mg/dL (>40) L 08/03/19 03:56 TSH 2.71 uIU/mL (0.47-4.68) 08/03/19 03:56 Free T3 pg/mL 2.80 pg/mL (2.77-5.27) 08/03/19 03:56 08/02/19 08/02/19 08/03/19 15:43 22:10 03:56 CK-MB (CK-2) 2.87 2.60 Troponin I 0.020 0.023 0.027 NT-Pro-B Natriuret Pep 52324 H 08/03/19 08/06/19 10:40 03:46 CK-MB (CK-2) 2.04 Troponin I 0.019 NT-Pro-B Natriuret Pep 3610 H Impressions: Chest X-Ray 08/02/19 14:55 IMPRESSION: Cardiomegaly and vascular congestion. Chest X-Ray 08/03/19 00:00 IMPRESSION: CARDIAC ENLARGEMENT. VASCULAR CONGESTION. No improvement. Plan Plan of Treatment: The patient is discharged home in stable condition. Arrangements have been made for the patient to receive home oxygen. Dr. Mahoney has made arrangements for the patient to have a trilogy through family medicine; patient will have to make arrangements to rent this device that she is uninsured. She is advised to follow-up with her primary care provider within 1 week. She is instructed to follow-up with Dr. Mittal, cardiology, and with Dr. Mahoney, pulmonology, within 4 to 6 weeks. She is instructed to stop smoking. She is advised to take medications as prescribed. She should return to emergency department as needed for concerning symptoms. Time Spent: Greater than 30 Minutes Stroke Is this a Stroke Patient?: No Acute Heart Failure - Is this a Heart Failure Patient?: Yes Documentation of LVEF assessment?: Yes LVEF < 40%?: No- if no continue to question #3 3. Anticoagulant therapy for permanect/persistent/paraoxysmal Afib or Aflutter: N/A Follow-up Appointment scheduled within 7 days?: Yes
== END 2019-08-06 16:57 | disposition home or self-care (01) | DRG 189 ==
LOC: ER 14:22 → EH 19:43 → 4N 23:03
PROVIDERS: ADMIT Emergency Medicine; ATTEND Emergency Medicine
DX: J96.01 Acute respiratory failure with hypoxia (principal); E66.2 Morbid (severe) obesity with alveolar hypoventilation; Z68.41 Body mass index [BMI] 40.0-44.9, adult; I50.9 Heart failure, unspecified; J96.02 Acute respiratory failure with hypercapnia; I11.0 Hypertensive heart disease with heart failure; M79.89 Other specified soft tissue disorders; I27.20 Pulmonary hypertension, unspecified; F17.210 Nicotine dependence, cigarettes, uncomplicated; Z88.2 Allergy status to sulfonamides; Z88.8 Allergy status to other drugs, medicaments and biological substances; Z91.048 Other nonmedicinal substance allergy status
CPT/HCPCS: 36415; 36600; 71045; 71046; 80048; 80053; 80061; 82550; 82553; 82803; 83036; 83735; 83880; 84443; 84481; 84484; 85025; 85027; 93005; 93010; 93306; 94640; 94660; 96374; 99284; J1644; J1940; J2920; J3490; J7620

== ENCOUNTER → 2020-08-16 | Outpatient (CLI) | payer OTHER ==
--- NOTE | 2020-08-17 15:16 | XCELERA REPORT ---
[address] [address] Transthoracic Echocardiogram Report Name: ANGÉLICA DOUGLASS Age: 50 yrs Gender: Female : 1970 Patient Status: Outpatient Patient Location: Study Date: 08/16/2020 09:23 AM History: CHF Height: 60 in Weight: 180 lb BSA: 1.8 m2 Procedure: A complete two-dimensional transthoracic echocardiogram was performed (2D, M-mode, spectral and color flow Doppler). The study was technically difficult with many images being suboptimal in quality. Lack of standard views impedes assessment. Reason For Study: CHF Previous Evaluation: A previous study was performed on 08/03/2019 LVEF was 50- 55%. History: CHF. Ordering Physician: BEATRICE OCONNOR Performed By: Megan Thomas Interpretation Summary Compared to prior study dated 08/03/2019 there is no significant change noted. Left ventricular systolic function is low normal. The Ejection Fraction estimate is 50-55% The right ventricle is severely dilated. The right ventricular systolic function is moderately reduced. There is a trace amount of mitral regurgitation No hemodynamically significant valvular aortic stenosis. There is a mild amount of tricuspid regurgitation There is moderate to severe pulmonary hypertension by echo There is no pericardial effusion. Compared to prior study dated 08/03/2019 there is no significant change noted. MMode/2D Measurements & Calculations RVDd: 4.0 cm LVIDd: 3.4 cm FS: 27.1 % Ao root diam: 2.9 cm IVSd: 0.86 cm LVIDs: 2.5 cm EDV(Teich): Ao root area: LVPWd: 0.73 cm 46.3 ml 6.5 cm2 ESV(Teich): 21.3 ml EF(Teich): 54.0 % EDV(MOD-sp4): SV(MOD-sp4): 56.3 ml 31.4 ml ESV(MOD-sp4): 24.9 ml EF(MOD-sp4): 55.7 % Doppler Measurements & Calculations MV E max lissa: MV dec slope: Ao V2 max: LV V1 max P.5 cm/sec 108.4 cm/sec 3.0 mmHg MV A max lissa: 272.7 cm/sec2 Ao max PG: LV V1 max: 50.2 cm/sec MV dec time: 0.22 sec4.7 mmHg 86.4 cm/sec MV E/A: 1.2 PA V2 max: TR max lissa: 73.2 cm/sec 341.5 cm/sec PA max P.1 mmHg TR max P.9 mmHg Left Ventricle The left ventricular cavity is small. There is borderline concentric left ventricular hypertrophy. Left ventricular systolic function is low normal. The Ejection Fraction estimate is 50-55%. Doppler measurements suggest pseudonormalized left ventricular relaxation, which is associated with grade II/IV or mild to moderate diastolic dysfunction. Wall motion cannot be accurately commented on, but no definite regional wall motion abnormalities noted. Not all wall segments were well visualized. Right Ventricle The right ventricle is severely dilated. The right ventricular systolic function is moderately reduced. Atria The right atrium is moderately dilated. The left atrium is borderline dilated. Mitral Valve The mitral valve is grossly normal. There is no evidence of mitral valve prolapse. There is no mitral valve stenosis. There is a trace amount of mitral regurgitation. Aortic Valve The aortic valve opens well. The aortic valve is not well visualized secondary to technical limitations. No hemodynamically significant valvular aortic stenosis. No aortic regurgitation is present. Tricuspid Valve The tricuspid valve is normal in structure and function. There is a mild amount of tricuspid regurgitation. Right ventricular systolic pressure is estimated to be elevated at >60mmHg. There is moderate to severe pulmonary hypertension by echo. Pulmonic Valve The pulmonic valve is not well visualized. There is a trace amount of pulmonic regurgitation. Great Vessels The aortic root is normal size. The inferior vena cava appeared dilated and decreased < 50% with respiration (RAP 15-20 mmHg). Effusions There is no pericardial effusion. : BEATRICE OCONNOR Anil
== END ==
LOC: SP 08:41
DX: M54.5 Low back pain (principal); I50.9 Heart failure, unspecified
CPT/HCPCS: 93306